=== PATIENT | female | born 1985 | race Caucasian/White ===

== ENCOUNTER 2020-12-04 03:30 | Inpatient (IN) ==
[2020-12-04] MEDS ORDERED: NALOXONE HCL 0.4 MG/1 ML VIAL/CARP ONE (03:31)
[2020-12-04] MEDS ORDERED: AMIODARONE 360MG / 200ML D5W IV ONE ×2 (03:44→04:11)
[2020-12-04] MEDS ORDERED: CALCIUM CHLORIDE 10% 10 ML SYR IV ONE ×2 (03:51→20:10)
[2020-12-04] MEDS ORDERED: DEXTROSE 50% 50 ML SYRINGE IV ONE (03:55)
[2020-12-04] MEDS ORDERED: SODIUM BICARBONATE 4.2% INJ 10 ML SYR IV ONE (04:03)
[2020-12-04] MEDS ORDERED: SODIUM BICARBONATE 8.4% INJ 50 MEQ/50 ML VIAL ONE (04:05)
[2020-12-04] MEDS ORDERED: NOREPINEPHRINE/D5W 8 MG/508 ML IV ONE (04:20)
[2020-12-04 04:43] LABS: iSTAT Arterial Blood Gas HCO3 26 meg/L (19-24); iSTAT Arterial Blood Gas pCO2 67 mmHg (35-46); iSTAT Arterial Blood Gas pH 7.19 (7.35-7.45); iSTAT Arterial Blood Gas pO2 225 mmHg (80-95); iSTAT Carbon Dioxide 28 mmol/L (24-31); iSTAT Hematocrit 30 % (37-47); iSTAT Hemoglobin 10.2 g/dl (12.0-16.0); iSTAT Sodium 140 mmol/L (135-144)
[2020-12-04 04:46] LABS: Hematocrit (blood only) 35.2 % (37-47); Hemoglobin 10.9 g/dL (12.0-16.0); Mean Corpuscular Hemoglobin 28.4 pg (25-34); Mean Corpuscular Volume 91.7 fL (80-100); Mean Platelet Volume 12.2 fL (7.4-10.4); Platelet Count 154 K/uL (130-400); RDW Coefficient of Variation 13.6 % (11.5-14.5); RDW Standard Deviation 45.3 fL (36.4-46.3); Red Blood Count 3.84 M/uL (4.2-5.4); White Blood Count 12.57 K/uL (4.8-10.8)
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
[2020-12-04] MEDS ORDERED: STAT IV Infusion **Titration per Protocol STA ×5 (04:51→08:53)
[2020-12-04] MEDS ORDERED: 0.2 MICRON FILTER SET 1 EA IV ONE (04:51)
[2020-12-04] MEDS ORDERED: AMIODARONE / D5W 150 MG/100 ML BAG IV STA (04:51)
[2020-12-04] MEDS ORDERED: ICU PROTOCOL FOR HYPERGLYCEMIA PRN (04:51)
[2020-12-04] MEDS ORDERED: AMIODARONE IV BOLUS & DRIP IV STA (04:51)
[2020-12-04] MEDS ORDERED: AMIODARONE / D5W 360 MG/200 ML BAG IV ONE (04:51)
[2020-12-04 04:53] LABS: Acetaminophen 7 ug/ml (10-30); Salicylate < 1.7 mg/dl (2.8-20)
[2020-12-04] MEDS ORDERED: POTASSIUM CHLORIDE / WTR 10 MEQ/100 ML PLCT IV STA (04:55)
--- NOTE | 2020-12-04 04:55 | Procedure Note ---
Procedure Note Date of Service December 04, 2020 Note FEMORAL CENTRAL LINE PROCEDURE NOTE: Procedure: Femoral Central Line Placement Attending: Dr. Bales Provider: GALA Dejesus Indication: Central Drug Administration, Poor Venous Access, Multiple Lab Draws Necessary Anesthesia: None Line placed emergently in the setting of cardiogenic shock requiring multiple vasopressors following a CODE BLUE. A time-out was completed verifying correct patient, procedure, site, positioning, and implants(s) or special equipment if applicable. Patients right groin was cleansed and draped in the typical sterile fashion using Chloraprep. The Femoral Vein and Femoral Artery were identified using ultrasound. The Femoral Vein was cannulated under direct ultrasound guidance using an introducer needle on a syringe. Good venous blood return was maintained prior to removal of syringe from introducer needle. Using Seldinger Technique, a guide wire was advanced through the introducer needle without resistance. The introducer needle was removed and ultrasound images were obtained of the guide wire within the Femoral Vein. A small incision was made in penetrating fashion at the guide wire insertion site utilizing an 11 blade scalpel. The dilator was advanced to the vessel without resistance. The dilator was exchanged for the triple lumen catheter which was advanced into the vessel without resistance. The guide wire was removed intact from the catheter without issue. Claves were placed on each catheter tip with confirmation of good blood flow from each lumen. Each port was easily flushed with sterile saline. The catheter was placed at the hub and sutured in place. BioPatch was applied to the catheter and a sterile Tegaderm dressing was applied over the catheter with careful attention to sterility. Patient tolerated procedure well. No immediate complications were met. Procedural Ultrasound Guidance: Procedure Date: 12/04/2020 Indication: Central venous catheter insertion Attending: Dr. Bales Provider: GALA Dejesus Artery AND Vein visualized: Yes Compressible Vein: Yes Guidewire or Short Catheter seen in vein prior to dilation: Yes Line confirmed in Vein with ultrasound: Yes Coding CPT Codes Tubes, Drains, and Vasc Access - Tubes, Drains, and Vasc Access: [id number] Place catheter in vein superior or inferior vena cava ([id number]) Tubes, Drains, and Vasc Access - Tubes, Drains, and Vasc Access: [id number] Ultrasound Guidance For Vascular ([id number]) [facility] [place] Procedure Codes (Charges) Tubes, Drains, and Vasc Access Procedure 1: Tubes, Drains, and Vasc Access: [id number] Place catheter in vein superior or inferior vena cava Procedure 2: Tubes, Drains, and Vasc Access: [id number] Ultrasound Guidance For Vascular
[2020-12-04 05:00] LABS: Pregnancy Test, Serum Negative (Negative)
[2020-12-04 05:10] LABS: Alanine Aminotransferase 193 U/L (12-78); Albumin Globulin Ratio 1.2 (0.9-2); Albumin Level 2.3 gm/dl (3.4-5.0); Alkaline Phosphatase 57 U/L (45-117); Aspartate Aminotransferase 215 U/L (15-37); BUN Creatinine Ratio 9.1 (10-20); Bilirubin Direct < 0.1 mg/dl (0-0.2); Bilirubin,Total 0.3 mg/dl (0.2-1); Blood Urea Nitrogen 12 mg/dl (7-18); Calcium 17.1 mg/dl (8.5-10.1); Carbon Dioxide 23 mmol/L (21-32); Chloride 106 mmol/L (98-107); Est GFR (Non-African American) 52.6 ml/min; Glucose 589 mg/dl (70-99); Lipase 181 U/L (73-393); Magnesium 4.5 mg/dl (1.8-2.4); Phosphorus 9.6 mg/dl (2.5-4.9); Potassium 2.9 mmol/L (3.5-5.1); Sodium 135 mmol/L (136-145); Total Protein 4.3 gm/dl (6.4-8.2); Troponin I 0.026 ng/ml (0-0.045)
[2020-12-04 05:14] LABS: Appearance Urine Cloudy (Clear); Bacteria Urine Automated 4+ (Negative); Bilirubin Urine Negative (Negative); Blood Urine 2+ (Negative); Color Urine Yellow; Epithelial Cell Urine Auto >30 /lpf (0-5); Glucose Urine UA 1+ (Negative); Ketones Urine Negative (Negative); Leukocyte Esterase Urine Negative (Negative); Nitrite Urine Negative (Negative); Protein Urine 2+ (Negative); Specific Gravity Urine 1.023 (1.000-1.030); Urobilinogen Urine Negative (Negative)
--- NOTE | 2020-12-04 05:23 | Emergency Department Note ---
Impression & Plan Cardiac arrest, Methamphetamine abuse, Ventricular fibrillation ED Provider Note Name: TANNER JOSHUA Age: 35 Sex: F Arrives Via: Walk-In Informant: Ex-Boyfriend, Mother ED Provider: Eleazar Crandall MD Chief Complaint: Overdose Impression: Cardiac Arrest Methamphetamine Abuse Ventricular Fibrillation Medical Decision Makin yr old female with history methamphetamine use and xanax use arrives via private vehicle by ex-boyfriend who found her unresponsive with needle next to her in bathroom at 3am this morning. He notes he gave CRP and breaths without improvement while trying to get her here. On arrival to ed unresponsive and taken to critical care bay by nursing where I met with them. Patient noted to be pulseless and not breathing and CODE BLUE Initiated at 330am. ACLS initiated and Intranasal Narcan given without response. Unable to get IV site initially this IO Placed by me left tibia and most meds given by this throughout main course of the code. No response to IV narcan either. Initial rhythm asystole. Intubated by me without difficulty. Multiple rounds epi, bicarb, calcium given as patient has been down significant amount of time by arrival. Repeat rhythm checks with vfib which was shocked many times throughout code as well as intermittent Torsades for which IV mag given as well. Patient with intermittent afib RVR, Vtach, Vfib, and torsades throughout course of code, though primarily vfib. Amiodarone started early in course, and with refractory fib Lidocaine given as well. Periodically would get pulsed rhythm for brief times with attempts at stabilizing made. Eventually got a stabilized NSR with hypotension. Bolus epi given while awaiting levo and epi gtts with good improvement in BP. Cooling protocol discussed and plan to initiate with CT head and move to ICU. ROSC EKG with unusual pattern that may be brugada, though would not be surprised if just reperfusion. Regardless, will be admitted to ICU for further evaluation. This could be reason for initial collapse in setting of meth use. No clear evidence of trauma to patient on examination and thus full CT c/a/p not indicated, though will get CT head en route to ICU. CCM and Medicine at bedside throughout this. Appreciate their input and help with this case, including right fem line placed by CCM and further discussion with significant other and mother of patient. There was some complications during CPR with pulmonary hemorrhage which required frequent suctioning but patient's O2 sats tolerated this fairly well. With clear evidence of using at time of overdose which was essentially witnessed, I suspect this is primary cause of her cardiac arrest. EKG without evidence that there is acute stemi, and with her BP stabilized on levo/epi, I am not sure there would be much utility to taking to slab tripper at this time. Furthermore, she did recently travel from [place], but I think PE unlikely, especially given it is relatively easy to oxygenate here, even while still doing ACLS. Triage/Nursing Notes reviewed by Me Additional history obtained from significant other (ex boyfriend), and mother (via phone) Differentials:Overdose, toxicologic, infection, hypoglycemia, electrolyte abnormalities, cardiac sources, intracerebral event, neurologic, trauma, as well as other pathologies. Vital Signs: reviewed and remarkable for cardiac arrest on arrival Interventions: Many, see code sheet and nursing notes Labs:Reviewed and remarkable for extensive abnormalities Imaging:X ray results are stated below per my interpretation: Chest: 1 view: Pulmonary edema with ET tube in place EKG:Per My Interpretation: Indication post cardiac arrest: NSR 82 bpm, qtc 415, unusual interventricular delay with questionable brugada morphology vs reperfusion recovery. No previous for comparison Cardiac/Tele Monitoring: Cardiac Monitoring: An Order was placed for continuous cardiac monitoring. The monitor shows a rate of 200 with a vfib rhythm. Consults:Dr Dwaine CORDERO Hospitalist, Charles CEDEÑO CCM Plan: Disposition:Hospitalization. Condition: Critical - Poor History of Present Illness:35 yr old female arrives for evaluation of being unresponsive. Patient with history meth and Xanax abuse who drove up to [place] with ex boyfriend (Amrit) this afternoon due to issues with significant other in [place] as well as her wish to get clean. Per Amrit patient seemed to be doing well and went in to take a shower this evening around 2:30am. He noted that it seemed very quite and thus checked on here and at 3am found her unresponsive on floor with needle and meth near her. Denies having heard any collapse/crash. Does not believe other drugs were involved. He states he noted she didn't seem to be breathing thus gave her breaths before driving here as fast as he could with her. Further information is unavailable. ROS: Unable to obtain due to cardiac arrest. Past Medical History:Unable to obtain due to cardiac arrest. Past Surgical History:Unable to obtain due to cardiac arrest. Family History:Unable to obtain due to cardiac arrest. Social History:Unable to obtain due to cardiac arrest. Home Medications:Unable to obtain due to cardiac arrest. Allergies:Unable to obtain due to cardiac arrest. Vitals:Blood Pressure: -/-, Pulse -, RR -, T -C, O2 -% on RA Physical Exam: GENERAL: Unresponsive, GCS 3. EYES: No scleral icterus, fixed mid pupils. ENT: Mucous membranes dry, no nasal congestion. NECK: Trachea is midline, no masses, no swelling. RESPIRATORY: Equal chest rise with ventilation, crackles bilaterally. CARDIOVASCULAR: No cardiac activity appreciated. GASTROINTESTINAL: Abdomen soft. Non-Distended. Bowel sounds not appreciated. No masses appreciated. EXTREMITIES: mottled, tract ried noted, no pulses appreciated. NEUROLOGIC: Unresponsive, GCS 3. SKIN: Mottled. No rash, no jaundice. ED Course: Times/Reassessments: Constant bedside management from 3:30am through 4:30am with brief discussions with Amrit (friend of patient in waiting room) and Ivania (mother via phone) Many repeat evaluations and discussions with [facility]/Hosp throughout and afterwards. Procedures: Endotracheal Intubation Indication: Cardiac arrest The patient was being bagged by respiratory with BVM. Suction, airway equipment, RSI drugs, respiratory equipment, and appropriate personnel were prepared prior to the initiation of the procedure. A time out was taken. Induction was performed with no mediation as patient GCS. After observing the clinical benefit of the medications, the airway was easily visualized utilizing a #3 GlideScope. A 7.5 size ETT tube was placed atraumatically to 24 cm using standard technique. The cuff inflated without signs of malfunction. There were bilateral breath sounds, positive colormetric change, no gastric sounds, a good capnography waveform, and post procedure pulse oximetry was 100% with good compressions. Post intubation sedation and paralysis was administered using no medication as completely unresponsive. There were no complications. CPR: I personally performed CPR on arrival of patient in standard fashion until able to turn over to next steam shovel engineer and at times throughout ACLS code. Cardiac Defibrillation: Non synchronized Cardiac defibrillation was performed for Vfib at least 6 times throughout code at 360 J by me in standard fashion. IO Placement: Left anterior tibial IO placed by me in sterile fashion. Landmarks identified, area cleaned and IO placed. Good marrow return and able to push fluids. Critical Care: I have personally spent 150 minutes of critical care time in the direct manag ement of this patient. Cardiopulmonary arrest with ROSC s/p methamphetamine overdose. This was a life/limb threatening event. This 150 minutes is in excess of all separately billable procedures. Eleazar Crandall MD Past Med/Surg History Social History Smoking Status: Unknown if ever smoked Communication Ability: Unable to Communication Ability Comment: Unable to obtain Current Living Situation Comment: Unable to obtain Results & Data (ED) Vital Signs Vital Signs - 24 hr 12/04/20 03:30 12/04/20 03:33 12/04/20 03:34 Pulse Rate 0 L 40 L Pulse Rate from SpO2 Sensor Respiratory Rate 93 H 38 H Blood Pressure Blood Pressure Mean 230 Pulse Oximetry Fraction of Inspired Oxygen Sepsis Recent Fever Within 48 Hours No Sepsis New/Unexplained Change in Mental Status N/A Sepsis Action Taken by Nursing No Action Required End-Tidal CO2 12/04/20 03:35 12/04/20 03:38 12/04/20 03:40 Pulse Rate 40 L 55 L 268 H Pulse Rate from SpO2 Sensor Respiratory Rate 25 H 38 H 30 H Blood Pressure 117/31 L Blood Pressure Mean 59 Pulse Oximetry Fraction of Inspired Oxygen Sepsis Recent Fever Within 48 Hours Sepsis New/Unexplained Change in Mental Status Sepsis Action Taken by Nursing End-Tidal CO2 12/04/20 03:41 12/04/20 03:45 12/04/20 03:50 Pulse Rate 159 H 134 H Pulse Rate from SpO2 Sensor 119 H 128 H Respiratory Rate 20 Blood Pressure 131/102 H 106/62 Blood Pressure Mean 111 76 Pulse Oximetry 94 94 Fraction of Inspired Oxygen Sepsis Recent Fever Within 48 Hours Sepsis New/Unexplained Change in Mental Status Sepsis Action Taken by Nursing End-Tidal CO2 12/04/20 03:55 12/04/20 04:00 12/04/20 04:05 Pulse Rate 126 H 189 H Pulse Rate from SpO2 Sensor 117 H 125 H Respiratory Rate 24 Blood Pressure 155/100 H Blood Pressure Mean 118 Pulse Oximetry 93 99 99 Fraction of Inspired Oxygen 60 Sepsis Recent Fever Within 48 Hours Sepsis New/Unexplained Change in Mental Status Sepsis Action Taken by Nursing End-Tidal CO2 36 12/04/20 04:06 12/04/20 04:10 12/04/20 04:12 Pulse Rate 96 H 145 H 103 H Pulse Rate from SpO2 Sensor 104 H 103 H Respiratory Rate Blood Pressure 218/161 H 125/84 Blood Pressure Mean 180 97 Pulse Oximetry 98 100 100 Fraction of Inspired Oxygen Sepsis Recent Fever Within 48 Hours Sepsis New/Unexplained Change in Mental Status Sepsis Action Taken by Nursing End-Tidal CO2 55 12/04/20 04:15 12/04/20 04:16 12/04/20 04:18 Pulse Rate 91 H 87 83 Pulse Rate from SpO2 Sensor 91 H 87 83 Respiratory Rate Blood Pressure 57/43 L 52/36 L Blood Pressure Mean 47 41 Pulse Oximetry 100 100 95 Fraction of Inspired Oxygen Sepsis Recent Fever Within 48 Hours Sepsis New/Unexplained Change in Mental Status Sepsis Action Taken by Nursing End-Tidal CO2 36 34 36 12/04/20 04:20 Pulse Rate 88 Pulse Rate from SpO2 Sensor 89 Respiratory Rate Blood Pressure 122/88 Blood Pressure Mean 99 Pulse Oximetry 100 Fraction of Inspired Oxygen Sepsis Recent Fever Within 48 Hours Sepsis New/Unexplained Change in Mental Status Sepsis Action Taken by Nursing End-Tidal CO2 40 Laboratory Data Result diagrams: 12/04/20 04:06 12/04/20 04:06 Lab Results 12/04/20 12/04/20 12/04/20 Range/Units 04:06 04:06 04:06 WBC 12.57 H (4.8-10.8) K/uL RBC 3.84 L (4.2-5.4) M/uL Hgb 10.9 L (12.0-16.0) g/dL POC Hgb (12.0-16.0) g/dl Hct 35.2 L (37-47) % POC Hct (37-47) % MCV 91.7 (80-100) fL MCH 28.4 (25-34) pg MCHC 31.0 L (32-36) g/dL RDW Std Deviation 45.3 (36.4-46.3) fL RDW Coeff of Antonia 13.6 (11.5-14.5) % Plt Count 154 (130-400) K/uL MPV 12.2 H (7.4-10.4) fL Neutrophils % (Manual) 26.1 % Lymphocytes % (Manual) 48.6 % Monocytes % (Manual) 0.9 % Eosinophils % (Manual) 0.9 % Metamyelocytes % (Man) 0.9 % Myelocytes % (Man) 1.7 % Neutrophils # (Manual) 3.28 (1.4-6.5) K/uL Total Absolute Neuts 3.28 (1.4-6.5) K/uL Lymphocytes # (Manual) 6.11 H (1.2-3.4) K/uL Total Abs Lymphocytes 8.74 H (1.2-3.4) K/uL Monocytes # (Manual) 0.11 (0.11-0.59) K/uL Eosinophils # (Manual) 0.11 (0-0.5) K/uL Metamyelocytes # (Man) 0.11 H (0-0) K/uL Myelocytes # (Manual) 0.21 H (0-0) K/uL Large Granular Lymphs 20.9 % # Lrg Granular Lymphs 2.63 K/uL Ovalocytes 1+ Echinocytes 1+ POC pH (7.35-7.45) POC pCO2 (35-46) mmHg POC pO2 (80-95) mmHg POC HCO3 (19-24) mayito/L POC Total CO2 (24-31) mmol/L POC Base Excess (-9-1.8) mayito/L POC ABG O2 Sat (90-95) % POC Sodium (135-144) mmol/L Sodium 135 L (136-145) mmol/L POC Potassium (3.3-5.0) mmol/L Potassium 2.9 L (3.5-5.1) mmol/L Chloride 106 (98-107) mmol/L Carbon Dioxide 23 (21-32) mmol/L Anion Gap 6.0 (3-11) BUN 12 (7-18) mg/dl Creatinine 1.31 H (0.6-1.2) mg/dl Est Cr Clr Drug Dosing Not Reportable Est GFR ( Amer) 61.0 ml/min Est GFR (Non-Af Amer) 52.6 ml/min BUN/Creatinine Ratio 9.1 L (10-20) Glucose 589 H* (70-99) mg/dl Calcium 17.1 H* (8.5-10.1) mg/dl Phosphorus 9.6 H (2.5-4.9) mg/dl Magnesium 4.5 H (1.8-2.4) mg/dl Total Bilirubin 0.3 (0.2-1) mg/dl Direct Bilirubin < 0.1 (0-0.2) mg/dl AST 215 H (15-37) U/L ALT 193 H (12-78) U/L Alkaline Phosphatase 57 (45-117) U/L Troponin I 0.026 (0-0.045) ng/ml Total Protein 4.3 L (6.4-8.2) gm/dl Albumin 2.3 L (3.4-5.0) gm/dl Globulin 2.0 L (2.5-4.0) gm/dl Albumin/Globulin Ratio 1.2 (0.9-2) Lipase 181 (73-393) U/L Beta-Hydroxybutyric Acd 2.47 (0.2-2.81) mg/dl HCG, Qual (Negative) Salicylates < 1.7 L (2.8-20) mg/dl Acetaminophen 7 L (10-30) ug/ml 12/04/20 12/04/20 Range/Units 04:06 04:07 WBC (4.8-10.8) K/uL RBC (4.2-5.4) M/uL Hgb (12.0-16.0) g/dL POC Hgb 10.2 L (12.0-16.0) g/dl Hct (37-47) % POC Hct 30 L (37-47) % MCV (80-100) fL MCH (25-34) pg MCHC (32-36) g/dL RDW Std Deviation (36.4-46.3) fL RDW Coeff of Antonia (11.5-14.5) % Plt Count (130-400) K/uL MPV (7.4-10.4) fL Neutrophils % (Manual) % Lymphocytes % (Manual) % Monocytes % (Manual) % Eosinophils % (Manual) % Metamyelocytes % (Man) % Myelocytes % (Man) % Neutrophils # (Manual) (1.4-6.5) K/uL Total Absolute Neuts (1.4-6.5) K/uL Lymphocytes # (Manual) (1.2-3.4) K/uL Total Abs Lymphocytes (1.2-3.4) K/uL Monocytes # (Manual) (0.11-0.59) K/uL Eosinophils # (Manual) (0-0.5) K/uL Metamyelocytes # (Man) (0-0) K/uL Myelocytes # (Manual) (0-0) K/uL Large Granular Lymphs % # Lrg Granular Lymphs K/uL Ovalocytes Echinocytes POC pH 7.19 L* (7.35-7.45) POC pCO2 67 H (35-46) mmHg POC pO2 225 H (80-95) mmHg POC HCO3 26 H (19-24) mayito/L POC Total CO2 28 (24-31) mmol/L POC Base Excess -3.0 (-9-1.8) mayito/L POC ABG O2 Sat 100.0 H (90-95) % POC Sodium 140 (135-144) mmol/L Sodium (136-145) mmol/L POC Potassium 3.0 L (3.3-5.0) mmol/L Potassium (3.5-5.1) mmol/L Chloride (98-107) mmol/L Carbon Dioxide (21-32) mmol/L Anion Gap (3-11) BUN (7-18) mg/dl Creatinine (0.6-1.2) mg/dl Est Cr Clr Drug Dosing Est GFR ( Amer) ml/min Est GFR (Non-Af Amer) ml/min BUN/Creatinine Ratio (10-20) Glucose (70-99) mg/dl Calcium (8.5-10.1) mg/dl Phosphorus (2.5-4.9) mg/dl Magnesium (1.8-2.4) mg/dl Total Bilirubin (0.2-1) mg/dl Direct Bilirubin (0-0.2) mg/dl AST (15-37) U/L ALT (12-78) U/L Alkaline Phosphatase (45-117) U/L Troponin I (0-0.045) ng/ml Total Protein (6.4-8.2) gm/dl Albumin (3.4-5.0) gm/dl Globulin (2.5-4.0) gm/dl Albumin/Globulin Ratio (0.9-2) Lipase (73-393) U/L Beta-Hydroxybutyric Acd (0.2-2.81) mg/dl HCG, Qual Negative (Negative) Salicylates (2.8-20) mg/dl Acetaminophen (10-30) ug/ml Administered Medications Amiodarone HCl/Dextrose (Nexterone / D5w) 360 mg in 200 mls @ 33.333 mls/hr IV ONE ONE Stop: 12/04/20 10:50 Last Infusion: 12/04/20 07:05 Dose: 33.3 mls/hr Documented by: [id number] Cosigned by: [id number] Infusion: 12/04/20 06:44 Dose: 33.3 mls/hr Documented by: [id number] Cosigned by: [id number] Admin: 12/04/20 05:14 Dose: 33.3 mls/hr Documented by: [id number] Cosigned by: [id number] Norepinephrine Bitartrate (Levophed/D5w) 8 mg in 508 mls @ 11.43 mls/hr IV .Q24H JASON; Protocol Stop: 01/03/21 04:59 Last Titration: 12/04/20 07:05 Dose: 0.2 mcg/kg/min, 45.7 mls/hr Documented by: [id number] Cosigned by: [id number] Admin: 12/04/20 06:44 Dose: 0.2 mcg/kg/min, 45.7 mls/hr Documented by: [id number] Cosigned by: [id number] Epinephrine HCl () 4 mg in 254 mls @ 4.572 mls/hr IV .Q24H JASON; Protocol Stop: 01/03/21 04:59 Last Titration: 12/04/20 07:05 Dose: 0.2 mcg/kg/min, 45.7 mls/hr Documented by: [id number] Cosigned by: [id number] Admin: 12/04/20 06:43 Dose: 0.2 mcg/kg/min, 45.7 mls/hr Documented by: [id number] Cosigned by: [id number] Sodium Chloride (Nss 1000ml) 1,000 mls @ 100 mls/hr IV .Q10H JASON Stop: 01/03/21 07:14 Last Admin: 12/04/20 07:32 Dose: 100 mls/hr Documented by: [id number] Ceftriaxone Sodium 2,000 mg/ (Dextrose) 70 mls @ 100 mls/hr IV Q24H JASON; Protocol Stop: 12/09/20 07:59 Last Admin: 12/04/20 07:31 Dose: 100 mls/hr Documented by: [id number] Discontinued Medications Amiodarone HCl/Dextrose (Amiodarone 360mg / 200ml D5w) Confirm Administered Dose 360 mg IV .STK-MED ONE Stop: 12/04/20 03:45 Last Admin: 12/04/20 06:38 Dose: Not Given Documented by: [id number] Amiodarone HCl/Dextrose (Amiodarone 360mg / 200ml D5w) Confirm Administered Dose 360 mg IV .STK-MED ONE Stop: 12/04/20 04:12 Last Admin: 12/04/20 06:38 Dose: Not Given Documented by: [id number] Amiodarone HCl (Amiodarone Iv Bolus & Drip) 1 ea IV NOW STA; Protocol Stop: 12/04/20 04:52 Last Admin: 12/04/20 06:39 Dose: Not Given Documented by: [id number] Calcium Chloride (Calcium Chloride 10% 10 Ml Syr) Confirm Administered Dose 2,000 mg IV .STK-MED ONE Stop: 12/04/20 03:52 Last Admin: 12/04/20 06:38 Dose: Not Given Documented by: [id number] Dextrose (Dextrose 50% 50 Ml Syringe) Confirm Administered Dose 50 ml IV .STK-ME D ONE Stop: 12/04/20 03:56 Last Admin: 12/04/20 06:38 Dose: Not Given Documented by: [id number] Epinephrine HCl (Epinephrine 1.5" Ndl 0.1 Mg/Ml Syr) Confirm Administered Dose 2 mg IV .STK-MED ONE Stop: 12/04/20 04:30 Last Admin: 12/04/20 04:34 Dose: 2 mg Documented by: [id number] Amiodarone HCl/Dextrose (Nexterone / D5w) 150 mg in 100 mls @ 600 mls/hr IV NOW STA Stop: 12/04/20 05:00 Last Infusion: 12/04/20 05:29 Dose: 0 mls/hr Documented by: [id number] Cosigned by: [id number] Admin: 12/04/20 05:14 Dose: 600 mls/hr Documented by: [id number] Cosigned by: [id number] Potassium Chloride (K Melo / Wtr) 10 meq in 100 mls @ 100 mls/hr IV Q1H STA Stop: 12/04/20 05:54 Last Admin: 12/04/20 07:15 Dose: 100 mls/hr Documented by: [id number] Midazolam HCl (Midazolam Hcl 1 Mg/Ml 2ml Vial) Confirm Administered Dose 2 mg .ROUTE .STK-MED ONE Stop: 12/04/20 06:16 Last Admin: 12/04/20 06:45 Dose: 2 mg Documented by: [id number] Midazolam HCl (Midazolam Hcl 1 Mg/Ml 2ml Vial) 2 mg IV NOW STA Stop: 12/04/20 06:41 Last Admin: 12/04/20 06:53 Dose: Not Given Documented by: [id number] Miscellaneous (Stat Iv Infusion Titration Per Protocol) 1 ea N/A NOW STA Stop: 12/04/20 04:52 Last Admin: 12/04/20 06:39 Dose: Not Given Documented by: [id number] Miscellaneous (Stat Iv Infusion Titration Per Protocol) 1 ea N/A NOW STA Stop: 12/04/20 04:52 Last Admin: 12/04/20 06:39 Dose: Not Given Documented by: [id number] Miscellaneous (Stat Iv Infusion Titration Per Protocol) 1 ea N/A NOW STA Stop: 12/04/20 04:55 Last Admin: 12/04/20 06:39 Dose: Not Given Documented by: [id number] Naloxone HCl (Naloxone Hcl 0.4 Mg/1 Ml Vial/Carp) Confirm Administered Dose 0.4 mg .ROUTE .STK-MED ONE Stop: 12/04/20 03:32 Last Admin: 12/04/20 06:38 Dose: Not Given Documented by: [id number] Norepinephrine Bitartrate (Norepinephrine/D5w 8 Mg/508 Ml) Confirm Administered Dose 8 mg IV .STK-MED ONE Stop: 12/04/20 04:21 Last Admin: 12/04/20 04:24 Dose: 8 mg Documented by: [id number] Sodium Bicarbonate (Sodium Bicarbonate 4.2% Inj 10 Ml Syr) Confirm Administered Dose 10 meq IV .STK-MED ONE Stop: 12/04/20 04:04 Last Admin: 12/04/20 06:38 Dose: Not Given Documented by: [id number] Sodium Bicarbonate (Sodium Bicarbonate 8.4% Inj 50 Meq/50 Ml Vial) Confirm Administered Dose 100 meq .ROUTE .STK-MED ONE Stop: 12/04/20 04:06 Last Admin: 12/04/20 06:38 Dose: Not Given Documented by: [id number] Imaging Data Radiologist's Impression: Chest X-Ray 12/04/20 04:20 XR chest 1V portable CLINICAL HISTORY: intubation COMPARISON STUDY: No previous studies for comparison. FINDINGS: Tip of endotracheal tube is 3.6 cm above the tyrone. Tip of nasogastric tube projects over the gastric cardia. There is no pneumothorax or pleural effusion. Note is made of bilateral airspace opacities and interstitial thickening, greater within the left lung. IMPRESSION: 1. Satisfactory positioning of the endotracheal tube. 2. Tip of nasogastric tube projects over the gastric cardia with side hole above the diaphragm. The tube could be advanced 4 cm. 3. Bilateral airspace opacities and interstitial thickening, greater within the left lung. The findings could reflect pneumonia or asymmetric pulmonary edema. ACT 112: Negative or not required by law. Electronically signed by: Cullen Ledesma M.D. 12/04/2020 7:[address] 12/04/20 04:[address] DOSE: 1498.35 mGy.cm HISTORY: s/p cardiac arrest TECHNIQUE: Multiaxial CT images of the head were performed without the use of intravenous contrast. Automated exposure control was utilized for this study. A dose lowering technique was utilized adhering to the principles of ALARA. Comparison: None. Findings: The paranasal sinuses and mastoid air cells are clear. The calvarium and skull base are intact. The ventricles and sulci are within normal limits. There is no mass, hematoma, midline shift, or acute infarct. Partially visualized left nasogastric tube. Impression: No acute intracranial abnormality. ACT 112: Negative or not required by law. Electronically signed by: Johnathan Clements M.D. 12/04/2020 7:43 AM Discharge Plan Visit Data Chief Complaint: Cardiac Arrest/CPR Stated Complaint: CODE BLUE/OVERDOSE ED Provider: Eleazar Crandall Discharge Problem: Cardiac arrest, Methamphetamine abuse, Ventricular fibrillation Patient Disposition: Admitted As Inpatient Discharge Instructions Interventions: ED Discharge Assessment Last Done: 12/04/20 05:44
[2020-12-04 05:32] LABS: ALC (manual) 8.74 K/uL (1.2-3.4); ANC (manual) 3.28 K/uL (1.4-6.5); Echinocytes 1+; Eosinophils # (manual) 0.11 K/uL (0-0.5); Eosinophils % (manual) 0.9 %; Large Granular Lymph # (manua 2.63 K/uL; Large Granular Lymph % (manual) 20.9 %; Lymphocytes # (manual) 6.11 K/uL (1.2-3.4); Lymphocytes % (manual) 48.6 %; Metamyelocytes # (manual) 0.11 K/uL (0-0); Metamyelocytes % (manual) 0.9 %; Monocytes # (manual) 0.11 K/uL (0.11-0.59); Monocytes % (manual) 0.9 %; Myelocytes # (manual) 0.21 K/uL (0-0); Myelocytes % (manual) 1.7 %; Neutrophils # (manual) 3.28 K/uL (1.4-6.5); Neutrophils % (manual) 26.1 %; Ovalocytes 1+
[2020-12-04 05:35] LABS: Amphetamines+Metham, Urine Pos (Neg); Barbiturates, Urine Neg (Neg); Benzodiazepine, Urine Pos (Neg); Cocaine, Urine Neg (Neg); MDMA (Ecstacy), Urine Pos (Neg); Methadone, Urine Neg (Neg); Opiate, Urine Neg (Neg); Phencyclidine, Urine Neg (Neg)
[2020-12-04 05:35] LABS: Beta-Hydroxybutyrate 2.47 mg/dl (0.2-2.81)
[2020-12-04 05:49] LABS: Mucus Urine Present (None Prsent)
[2020-12-04 05:53] LABS: Cast Urine Automated 0 /lpf (0-5); Renal Epithelial Cells Urine 20-30 /lpf (0-5)
[2020-12-04] MEDS ORDERED: MIDAZOLAM HCL 1 MG/ML 2ML VIAL ONE (06:15)
[2020-12-04] MEDS ORDERED: MIDAZOLAM HCL 1 MG/ML 2ML VIAL IV STA (06:40)
[2020-12-04] MEDS: EPINEPHrine/NSS 4 MG/254 ML BAG IV SCH ×2 (06:43→10:57)
[2020-12-04] MEDS: NOREPINEPHRINE/D5W 8 MG/508 ML BAG IV SCH ×3 (06:44→23:59)
--- NOTE | 2020-12-04 07:11 | Critical Care Consultation ---
Date of Consultation December 04, 2020 Assessment & Plan (1) Cardiogenic shock: Reason Critically Ill: 35-year-old female presents to the ICU following cardiac arrest from a drug overdose and undergoing therapeutic hypothermia. Currently in cardiogenic shock requiring multiple vasopressors. Neuro - Anoxic brain injurypatient was found down by friend for approximately 30 minutes before arriving to the ER and received an additional 1 hour of CPR during code for cardiac arrest -Patient unresponsive with severe evidence of anoxic injury based off neurological exam following ROSC -No acute intracranial findings on CT head -Patient undergo 24 hours of therapeutic hypothermia. Will obtain EEG and reassess neurological status once rewarmed -Therapeutic hypothermia protocol Cardiac - Cardiogenic shock/cardiac arrestpatient severely hypotensive requiring multiple vasopressors following prolonged cardiac arrest from drug overdose of approximately 1.5 hours -CVC is inserted, will need arterial line -Troponin within normal limits -EKG NSR with nonspecific intraventricular conduction delay. No prior study to compare. QTc 415 -Echo pending -Continue amiodarone drip -Maximize electrolyte -Titrate vasopressors for maps greater than 65 -Continuous monitor on telemetry Respiratory - Acute hypoxic respiratory failurepatient hypoxic following cardiac arrest with suspected pulmonary edema as patient was pulseless for extended period of time and received multiple rounds of CPR -Currently mechanically ventilated, will trend ABGs and wean vent as tolerated -We will hold on diuresis as patient is currently hypotensive on multiple vasopressors -Careful with fluid resuscitation at this time -Continuous monitoring on telemetry GI - N.p.o. OG tube to low wall suction RENAL/LYTES - AKIlikely ATN following cardiac arrest -Continue with IV fluid resuscitation -Maintain maps greater than 65 -Avoid nephrotoxins and renally adjust medication -Monitor frequent BMPs and replete electrolytes as indicated - Foleystrict I's and O's ENDO - No history diabetes or thyroid disease ICU hyperglycemic protocol HEME - Hemoglobin stable at this time, monitor routine CBCs ID - UTIUA turbid with +4 bacteria -Urine culture pending -Starting ceftriaxone x7 days LINES/IV ACCESS - right femoral intravascular cooling catheter DVT PROPHYLAXIS - SCDs I have personally spent 65 minutes of critical care time in the direct management of this patient. This is a life/limb threatening event. This includes time spent evaluating patient, direct bedside care, chart review, placing orders, interpretation of diagnostic studies, discussion with consultants, patient, and family members, as well as other required patient management activities. This time is exclusive of all separately billable procedures, and teaching time and separate from and in addition to any other critical care service time. Thank you for allowing us to participate in the care of this patient. Please refer to my attending physician's documentation for any further recommendations. (2) Anoxic brain injury: (3) Overdose: (4) Cardiac arrest: (5) Methamphetamine abuse: (6) Ventricular fibrillation: History of Present Illness Attending Physician: Carlos Isidro MD History of Present Illness Patient is a 35-year-old female without any known past medical history who was dropped off in the lobby of the ER following an overdose earlier this morning. Patient's friend reported that she had just arrived into town from [place] and was found down in the bathroom with a needle next to her arm at approximately 3 AM. Friend estimated downtime in approximately 30 minutes prior to arrival to the ER. Patient arrived to the ER unresponsive and CODE BLUE was activated. She was initially in PEA and underwent several rounds of CPR with epinephrine, bicarb, and calcium push. She converted to V. fib and underwent several additional rounds of CPR with defibrillation. She achieved ROSC on multiple occasions during the code but subsequently would convert back to V. fib. Patient eventually converted to NSR following defibrillation. During the code she was intubated, received 4 A bicarb, multiple pushes epinephrine, 2 g magnesium, 2 g calcium, and amiodarone bolus. Patient remained hypotensive and was started on epinephrine and norepinephrine drips. A right femoral triple- lumen CVC was placed emergently in the ER. Following ROSC, patient was unresponsive and had no response to painful stimuli, no cough gag or corneals. She did exhibit some agonal breathing. I did speak with the patient's mother regarding her poor prognosis. At this time the mother stated that she would like everything done. Patient is being transferred to the ICU to undergo 24- hour therapeutic hypothermia at this time. Allergies Allergy/AdvReac Type Severity Reaction Status Date / Time Penicillins Allergy Unknown Verified 12/04/20 14:21 Patient History Social History Smoking Status: Unknown if ever smoked Communication Ability: Unable to Communication Ability Comment: Unable to obtain Current Living Situation Comment: Unable to obtain Review of Systems Review of Systems: Unobtainable due to cognitive status and Unobtainable due to endotracheal tube Physical Exam Constitutional: + mechanically ventilated and + underweight Eyes: Pupils fixed nonreactive to light ENMT: external ear and nose normal, oropharynx normal Neck: trachea midline, no thyromegaly Respiratory: Coarse crackles auscultated bilaterally in all lung miller. Patient with pink frothy sputum. Mechanically ventilated. Symmetrical chest wall movement. No wheezes. Cardiovascular: Rate/Rhythm: regular rate and regular rhythm Heart Sounds: normal S1 and normal S2 Vessels: + JVD Extremities: no edema Gastrointestinal (Abdomen): normal bowel sounds, soft, nontender, no hepatosplenomegaly Musculoskeletal: no cyanosis or clubbing, extremities motor strength 5/5 Neurologic: Pupils fixed nonreactive to light. No cough gag or corneals on exam. Psychiatric: Patient comatose Results & Data Results & Data ([facility]) Vital Signs (Past 12 Hours) Vital Signs Temp Pulse Pulse Resp BP BP BP 12/04/20 06:26 34.4 C L 78 37 H 111/77 12/04/20 06:21 82 36 H 12/04/20 06:20 34.4 C L 78 37 H 111/77 12/04/20 05:38 12/04/20 05:25 77 101/72 12/04/20 05:24 76 96/82 L 12/04/20 05:20 78 110/81 12/04/20 05:15 76 140/95 12/04/20 05:10 74 157/100 H 12/04/20 05:05 77 159/105 H 12/04/20 05:03 76 163/111 H 12/04/20 05:01 75 16 173/107 H 12/04/20 05:00 75 173/107 H 12/04/20 04:50 70 151/97 H 12/04/20 04:49 70 150/99 H 12/04/20 04:45 70 145/91 H 12/04/20 04:40 70 122/83 12/04/20 04:37 12/04/20 04:35 71 98/66 L 12/04/20 04:33 71 87/59 L 12/04/20 04:30 73 12/04/20 04:26 78 64/43 L 12/04/20 04:25 80 12/04/20 04:20 88 122/88 12/04/20 04:18 83 52/36 L 12/04/20 04:16 87 57/43 L 12/04/20 04:15 91 H 12/04/20 04:12 103 H 125/84 12/04/20 04:10 145 H 12/04/20 04:06 96 H 218/161 H 12/04/20 04:05 189 H 12/04/20 04:00 126 H 24 155/100 H 12/04/20 03:55 12/04/20 03:50 12/04/20 03:45 134 H 106/62 12/04/20 03:41 159 H 20 131/102 H 12/04/20 03:40 268 H 30 H 12/04/20 03:38 55 L 38 H 12/04/20 03:35 40 L 25 H 117/31 L 12/04/20 03:34 40 L 38 H 12/04/20 03:33 0 L 93 H Pulse Ox 12/04/20 06:26 90 12/04/20 06:21 90 12/04/20 06:20 90 12/04/20 05:38 90 12/04/20 05:25 90 12/04/20 05:24 90 12/04/20 05:20 92 12/04/20 05:15 92 12/04/20 05:10 95 12/04/20 05:05 96 12/04/20 05:03 96 12/04/20 05:01 96 12/04/20 05:00 97 12/04/20 04:50 100 12/04/20 04:49 100 12/04/20 04:45 100 12/04/20 04:40 100 12/04/20 04:37 100 12/04/20 04:35 99 12/04/20 04:33 94 12/04/20 04:30 92 12/04/20 04:26 96 12/04/20 04:25 96 12/04/20 04:20 100 12/04/20 04:18 95 12/04/20 04:16 100 12/04/20 04:15 100 12/04/20 04:12 100 12/04/20 04:10 100 12/04/20 04:06 98 12/04/20 04:05 99 12/04/20 04:00 99 12/04/20 03:55 93 12/04/20 03:50 94 12/04/20 03:45 94 12/04/20 03:41 12/04/20 03:40 12/04/20 03:38 12/04/20 03:35 12/04/20 03:34 12/04/20 03:33 Coding Level of Care Code Critical Care 1st 30-74 mins Diagnoses Cardiogenic shock R57.0 Anoxic brain injury G93.1 Overdose T50.901A Cardiac arrest I46.9 Methamphetamine abuse F15.10 Ventricular fibrillation I49.01
--- NOTE | 2020-12-04 07:11 | Procedure Note ---
Procedure Note Date of Service December 04, 2020 Note FEMORAL CENTRAL LINE PROCEDURE NOTE: Procedure: Femoral intravascular cooling catheter [id number] exchange Attending: Dr. Bales Provider: GALA Dejesus Indication: Central Drug Administration, therapeutic hypothermia Anesthesia: None Line was placed emergently following CODE BLUE and cardiogenic shock with patient unresponsive after ROSC achieved. Patient now undergoing 24 hours therapeutic hypothermia. A time-out was completed verifying correct patient, procedure, site, positioning, and implants(s) or special equipment if applicable. Patients right groin was cleansed and draped in the typical sterile fashion using Chloraprep. A guidewire was placed into the distal port of the patient's existing central venous catheter and the catheter was exchanged for the wire. The wire was visualized in the right femoral vein using ultrasound. The dilator was advanced to the vessel without resistance. The dilator was exchanged for the endovascular cooling catheter which was advanced into the vessel without resistance. The guide wire was removed intact from the catheter without issue. Claves were placed on each catheter tip with confirmation of good blood flow from each lumen. Each port was easily flushed with sterile saline. The catheter was placed at the hub and sutured in place. BioPatch was applied to the catheter and a sterile Tegaderm dressing was applied over the catheter with careful attention to sterility. Patient tolerated procedure well. No immediate complications were met. Coding CPT Codes Tubes, Drains, and Vasc Access - Tubes, Drains, and Vasc Access: [id number] Place catheter in vein superior or inferior vena cava ([id number]) [facility] [place] Procedure Codes (Charges) Tubes, Drains, and Vasc Access Procedure 3: Tubes, Drains, and Vasc Access: [id number] Place catheter in vein superior or inferior vena cava
[2020-12-04] MEDS ORDERED: ACETAMINOPHEN 650 MG SUPP PR PRN (07:12)
[2020-12-04] MEDS ORDERED: MEPERIDINE HCL 25 MG/ML CARP/VIAL IV PRN (07:12)
[2020-12-04] MEDS ORDERED: SODIUM CHLORIDE 0.9% 1000ML 1,000 ML IV SCH (07:15)
--- NOTE | 2020-12-04 07:45 | CT Scan Report ---
HEAD CT NONCONTRAST CT DOSE: 1498.35 mGy.cm HISTORY: s/p cardiac arrest TECHNIQUE: Multiaxial CT images of the head were performed without the use of intravenous contrast. A utomated exposure control was utilized for this study. A dose lowering technique was utilized adheri ng to the principles of ALARA. Comparison: None. Findings: The paranasal sinuses and mastoid air cells are clear. The calvarium and skull base are int act. The ventricles and sulci are within normal limits. There is no mass, hematoma, midline shift, or acute infarct. Partially visualized left nasogastric tube. Impression: No acute intracranial abnormality. ACT 112: Negative or not required by law. Electronically signed by: Johnathan Clements M.D. 12/04/2020 7:43 AM
[2020-12-04] MEDS: fentaNYL DRIP 1,250 MCG/250 ML BAG IV SCH (07:57)
--- NOTE | 2020-12-04 07:59 | XRay Report ---
XR chest 1V portable CLINICAL HISTORY: intubation COMPARISON STUDY: No previous studies for comparison. FINDINGS: Tip of endotracheal tube is 3.6 cm above the tyrone. Tip of nasogastric tube projects over the gastric cardia. There is no pneumothorax or pleural effusion. Note is made of bilateral airspace opacities and interstitial thickening, greater within the left lung. IMPRESSION: 1. Satisfactory positioning of the endotracheal tube. 2. Tip of nasogastric tube projects over the gastric cardia with side hole above the diaphragm. The t ube could be advanced 4 cm. 3. Bilateral airspace opacities and interstitial thickening, greater within the left lung. The findin gs could reflect pneumonia or asymmetric pulmonary edema. ACT 112: Negative or not required by law. Electronically signed by: Cullen Ledesma M.D. 12/04/2020 7:58 AM
[2020-12-04] MEDS ORDERED: cefTRIAXone SODIUM 2,000 MG in DEXTROSE 5% 50 ML IV SCH (08:00)
[2020-12-04 08:24] LABS: iSTAT Arterial Blood Gas HCO3 28 meg/L (19-24); iSTAT Arterial Blood Gas pCO2 64 mmHg (35-46); iSTAT Arterial Blood Gas pH 7.24 (7.35-7.45); iSTAT Arterial Blood Gas pO2 89 mmHg (80-95); iSTAT Carbon Dioxide 30 mmol/L (24-31); iSTAT FiO2 65 %; iSTAT Site Art Line
[2020-12-04] MEDS: FAMOTIDINE 20 MG in SYRINGE 3 ML IV SCH ×2 (08:26→21:51)
[2020-12-04 08:30] LABS: INR 1.3 (0.9-1.1); Partial Thromboplastin Time 25.4 Seconds (21.0-31.0); Prothrombin Time 13.2 Seconds (9.0-12.0)
[2020-12-04] MEDS: POTASSIUM CHLORIDE / WTR 10 MEQ/100 ML PLCT IV SCH ×2 (08:30→09:35)
[2020-12-04 08:45] LABS: BUN Creatinine Ratio 13.4 (10-20); Calcium 12.1 mg/dl (8.5-10.1); Creatinine Clr Calc Pharmacy 46.2 ml/min; Magnesium 3.3 mg/dl (1.8-2.4); Potassium 3.1 mmol/L (3.5-5.1)
[2020-12-04] MEDS ORDERED: SEVERE STRESS LEVEL ONE (08:46)
[2020-12-04] MEDS ORDERED: INSULIN PROTOCOL GOAL RANGE ONE (08:46)
[2020-12-04] MEDS ORDERED: POTASSIUM CHLORIDE CRTAB 20 MEQ TABCR PO STA (08:52)
[2020-12-04] MEDS ORDERED: PIPERACILL/TAZOBAC CONSULT ACTIVE PRN (08:54)
--- NOTE | 2020-12-04 08:56 | Medical Student Progress Note ---
Date of Service December 04, 2020 Assessment & Plan (1) Cardiogenic shock: Admission and Anticipated Discharge Date Admission Date: December 04, 2020 Results & Data ([facility]) Vital Signs (Past 12 Hours) Vital Signs Temp Pulse Pulse Resp BP BP BP 12/04/20 07:37 82 27 H 12/04/20 06:26 34.4 C L 78 37 H 111/77 12/04/20 06:21 82 36 H 12/04/20 06:20 34.4 C L 78 37 H 111/77 12/04/20 05:38 12/04/20 05:25 77 101/72 12/04/20 05:24 76 96/82 L 12/04/20 05:20 78 110/81 12/04/20 05:15 76 140/95 12/04/20 05:10 74 157/100 H 12/04/20 05:05 77 159/105 H 12/04/20 05:03 76 163/111 H 12/04/20 05:01 75 16 173/107 H 12/04/20 05:00 75 173/107 H 12/04/20 04:50 70 151/97 H 12/04/20 04:49 70 150/99 H 12/04/20 04:45 70 145/91 H 12/04/20 04:40 70 122/83 12/04/20 04:37 12/04/20 04:35 71 98/66 L 12/04/20 04:33 71 87/59 L 12/04/20 04:30 73 12/04/20 04:26 78 64/43 L 12/04/20 04:25 80 12/04/20 04:20 88 122/88 12/04/20 04:18 83 52/36 L 12/04/20 04:16 87 57/43 L 12/04/20 04:15 91 H 12/04/20 04:12 103 H 125/84 12/04/20 04:10 145 H 12/04/20 04:06 96 H 218/161 H 12/04/20 04:05 189 H 12/04/20 04:00 126 H 24 155/100 H 12/04/20 03:55 12/04/20 03:50 12/04/20 03:45 134 H 106/62 12/04/20 03:41 159 H 20 131/102 H 12/04/20 03:40 268 H 30 H 12/04/20 03:38 55 L 38 H 12/04/20 03:35 40 L 25 H 117/31 L 12/04/20 03:34 40 L 38 H 12/04/20 03:33 0 L 93 H Pulse Ox 12/04/20 07:37 93 12/04/20 06:26 90 12/04/20 06:21 90 12/04/20 06:20 90 12/04/20 05:38 90 12/04/20 05:25 90 12/04/20 05:24 90 12/04/20 05:20 92 12/04/20 05:15 92 12/04/20 05:10 95 12/04/20 05:05 96 12/04/20 05:03 96 12/04/20 05:01 96 12/04/20 05:00 97 12/04/20 04:50 100 12/04/20 04:49 100 12/04/20 04:45 100 12/04/20 04:40 100 12/04/20 04:37 100 12/04/20 04:35 99 12/04/20 04:33 94 12/04/20 04:30 92 12/04/20 04:26 96 12/04/20 04:25 96 12/04/20 04:20 100 12/04/20 04:18 95 12/04/20 04:16 100 12/04/20 04:15 100 12/04/20 04:12 100 12/04/20 04:10 100 12/04/20 04:06 98 12/04/20 04:05 99 12/04/20 04:00 99 12/04/20 03:55 93 12/04/20 03:50 94 12/04/20 03:45 94 12/04/20 03:41 12/04/20 03:40 12/04/20 03:38 12/04/20 03:35 12/04/20 03:34 12/04/20 03:33
[2020-12-04] MEDS ORDERED: INSULIN REGULAR 250 UNITS in SODIUM CHLORIDE 0.9% 247.5 ML IV SCH (09:00)
[2020-12-04] MEDS ORDERED: POTASSIUM CHLORIDE / WTR 10 MEQ/100 ML PLCT IV SCH ×2 (09:00→10:30)
[2020-12-04 09:02] LABS: Creatine Kinase MB 42.9 ng/ml (0.5-3.6)
[2020-12-04] MEDS ORDERED: CARBOHYDRATES FOR HYPOGLYCEMIA PO PRN (09:15)
[2020-12-04] MEDS ORDERED: NovoLIN-R BOLUS FROM BAG IV ONE (09:15)
[2020-12-04] MEDS ORDERED: GLUCAGON FOR INJ 1 MG VIAL IM PRN (09:15)
[2020-12-04] MEDS ORDERED: GLUCOSE 40% GEL 15 GM TUBE PO PRN (09:15)
[2020-12-04] MEDS ORDERED: GLUCOSE 10 TABS/TUBE PO PRN (09:15)
[2020-12-04] MEDS: VASOPRESSIN 20 UNITS in 0.9 % SODIUM CHLORIDE 100 ML IV SCH ×2 (09:17→16:12)
[2020-12-04] MEDS: HYDROCORTISONE SOD 50 MG in SYRINGE 0 ML IV SCH ×3 (09:18→21:51)
--- NOTE | 2020-12-04 09:35 | Hospitalist Progress Note ---
Date of Service December 04, 2020 Assessment & Plan (1) Cardiac arrest: 35yo female presented to the EMS unresponsive and in cardiac arrest after being down in the setting of presumed methamphetamine overdose. Patient is in cardiogenic shock requiring multiple pressors and undergoing therapeutic hypothermia. Anoxic brain injury Found down by a friend after an estimated 30 minutes, subsequently received one hour of CPR for cardiac arrest before ROSC was achieved Unresponsive with signs of severe anoxic brain injury CT head negative for acute findings Per ICU, currently undergoing 24 hours of therapeutic hypothermia before rewarming, at which time EEG and repeat neurological exam will be performed Management per ICU Cardiogenic shock Management per ICU; currently on vasopressin, levophed, and epinephrine drips as well as amiodarone drip Echo (12/04) with EF 20-25%, wall motion abnormalities Continue telemetry monitoring, management per ICU Acute hypoxic respiratory failure secondary to cardiac arrest Mechanically ventilated at this time, management per ICU: trending ABGs, wean vent as tolerated Telemetry monitoring EDDI Likely ATN secondary to cardiac arrest, resultant lack of perfusion Management per ICU: careful IV fluid resuscitation, avoid nephrotoxins, frequent BMP, electrolyte repletion as needed UTI UA turbid, 4+ bacteria Culture pending Continue ceftriaxone IV per ICU Hypercalcemia Management per ICU FEN: NPO Code status: full code DVT ppx: heparin Consults: ICU, palliative care Dispo: ICU, prognosis poor Admission and Anticipated Discharge Date Admission Date: December 04, 2020 Supervising Physician Co-Signing Physician Notes I also saw the patient with the resident physician and confirmed martin portions of the history and physical examination. Agree with the impression and plan as noted in the resident documentation. ICU team providing care; family medicine following along for continuity of care showed the patient improvement transition out of the ICU, however at this time that appears unlikely. 35-year-old female admitted earlier this morning, dropped off in the waiting of the emergency department and found to be in cardiac arrest from a suspected drug overdose. Unknown downtime; extended resuscitation, initially PEA with subsequent return of spontaneous circulation. She was admitted to the ICU with hypothermia protocol. Upon exam, she remains sedated, ventilated, multiple pressor agents. The patient's mother lives in [place] and is on her way. Palliative care has been consulted. Cardiac arrest secondary to drug overdose Anoxic brain injury Therapeutic hypothermic protocol Cardiogenic shock on multiple pressor agents Care was provided by ICU team. Telemedicine continues to follow at a distance at this point in time Subjective Patient seen and evaluated at bedside this morning. Patient remains comatose. Discussed with ICU attending who reports patient is breathing over the vent. Family was updated overnight by ICU EHR TRAINER. ROS unobtainable. Review of Systems Review of Systems: See HPI Physical Exam Physical Exam: Constitutional: laying in bed, intubated and mechanically ventilated CV: heart sounds distant Resp: crackles heard throughout, mechanically ventilated with symmetric chest rise Neuro: comatose, unresponsive to sternal rub, pupils equal, fixed, unresponsive to light, occasional brief myoclonus of all extremities and eyelids Results & Data Results & Data ([facility]) Vital Signs (Past 12 Hours) Vital Signs Temp Pulse Pulse Resp BP BP BP 12/04/20 07:37 82 27 H 12/04/20 06:26 34.4 C L 78 37 H 111/77 12/04/20 06:21 82 36 H 12/04/20 06:20 34.4 C L 78 37 H 111/77 12/04/20 05:38 12/04/20 05:25 77 101/72 12/04/20 05:24 76 96/82 L 12/04/20 05:20 78 110/81 12/04/20 05:15 76 140/95 12/04/20 05:10 74 157/100 H 12/04/20 05:05 77 159/105 H 12/04/20 05:03 76 163/111 H 12/04/20 05:01 75 16 173/107 H 12/04/20 05:00 75 173/107 H 12/04/20 04:50 70 151/97 H 12/04/20 04:49 70 150/99 H 12/04/20 04:45 70 145/91 H 12/04/20 04:40 70 122/83 12/04/20 04:37 12/04/20 04:35 71 98/66 L 12/04/20 04:33 71 87/59 L 12/04/20 04:30 73 12/04/20 04:26 78 64/43 L 12/04/20 04:25 80 12/04/20 04:20 88 122/88 12/04/20 04:18 83 52/36 L 12/04/20 04:16 87 57/43 L 12/04/20 04:15 91 H 12/04/20 04:12 103 H 125/84 12/04/20 04:10 145 H 12/04/20 04:06 96 H 218/161 H 12/04/20 04:05 189 H 12/04/20 04:00 126 H 24 155/100 H 12/04/20 03:55 12/04/20 03:50 12/04/20 03:45 134 H 106/62 12/04/20 03:41 159 H 20 131/102 H 12/04/20 03:40 268 H 30 H 12/04/20 03:38 55 L 38 H 12/04/20 03:35 40 L 25 H 117/31 L 12/04/20 03:34 40 L 38 H 12/04/20 03:33 0 L 93 H Pulse Ox 12/04/20 07:37 93 12/04/20 06:26 90 12/04/20 06:21 90 12/04/20 06:20 90 12/04/20 05:38 90 12/04/20 05:25 90 12/04/20 05:24 90 12/04/20 05:20 92 12/04/20 05:15 92 12/04/20 05:10 95 12/04/20 05:05 96 12/04/20 05:03 96 12/04/20 05:01 96 12/04/20 05:00 97 12/04/20 04:50 100 12/04/20 04:49 100 12/04/20 04:45 100 12/04/20 04:40 100 12/04/20 04:37 100 12/04/20 04:35 99 12/04/20 04:33 94 12/04/20 04:30 92 12/04/20 04:26 96 12/04/20 04:25 96 12/04/20 04:20 100 12/04/20 04:18 95 12/04/20 04:16 100 12/04/20 04:15 100 12/04/20 04:12 100 12/04/20 04:10 100 12/04/20 04:06 98 12/04/20 04:05 99 12/04/20 04:00 99 12/04/20 03:55 93 12/04/20 03:50 94 12/04/20 03:45 94 12/04/20 03:41 12/04/20 03:40 12/04/20 03:38 12/04/20 03:35 12/04/20 03:34 12/04/20 03:33 Resident Activity Tracking Resident Involvement: Resident Care Provided Care Provided: Adult Hospital Medicine
--- NOTE | 2020-12-04 09:40 | Electrocardiogram Report ---
Test Reason : Blood Pressure : / mmHG Vent. Rate : 082 BPM Atrial Rate : 082 BPM P-R Int : 180 ms QRS Dur : 124 ms QT Int : 356 ms P-R-T Axes : 051 087 075 degrees QTc Int : 415 ms Normal sinus rhythm Atypical right bundle branch block, consider Brugada pattern Abnormal ECG No previous ECGs available Confirmed by Efrain Cabrales ([id number]) on 12/04/2020 9:40:26 AM Referred By: REFERRED SELF Confirmed By:Earl Cabrales
[2020-12-04] MEDS ORDERED: PIPERACILLIN/TAZOBACTAM 3.375 GM in DEXTROSE 5% 100 ML IV ONE (10:00)
[2020-12-04] MEDS ORDERED: ARTIFICIAL TEARS OP OINT 3.5 GM TUBE OP PRN (11:10)
[2020-12-04] MEDS: HEPARIN SOD 5,000 UNIT/0.5 ML VIAL SQ SCH ×2 (11:25→23:54)
[2020-12-04] MEDS: AMIODARONE / D5W 360 MG/200 ML BAG IV SCH ×2 (11:25→23:57)
[2020-12-04] MEDS ORDERED: INSULIN ASPART 100 UNITS/ML 3 ML PEN SC SCH (11:30)
[2020-12-04 12:13] LABS: INR 1.4 (0.9-1.1); Partial Thromboplastin Ratio 0.9; Partial Thromboplastin Time 24.5 Seconds (21.0-31.0); Prothrombin Time 13.6 Seconds (9.0-12.0)
[2020-12-04 12:25] LABS: Calcium 11.4 mg/dl (8.5-10.1); Creatinine Clr Calc Pharmacy 45.9 ml/min; Est GFR (African American) 50.5 ml/min; Est GFR (Non-African American) 43.6 ml/min; Magnesium 2.7 mg/dl (1.8-2.4)
--- NOTE | 2020-12-04 12:54 | XCELERA ---
[id number] \\[id number]
--- NOTE | 2020-12-04 13:07 | Procedure Note ---
Procedure Note Date of Service December 04, 2020 Note A time out was performed. My hands were washed immediately prior to the procedure. I wore a surgical cap, mask with protective eyewear, sterile gown and sterile gloves throughout the procedure. The left inguinal region was prepped using chlorhexidine scrub and draped in sterile fashion using a three quarter sheet drape and sterile towels. The femoral pulse was identified using ultrasound guidance. Anesthesia was achieved using 1% lidocaine. With the aid of ultrasound guidance the femoral artery was identified, the introducer needle was inserted into the femoral artery. Arterial blood was withdrawn. The syringe was removed and a guidewire was advanced through the needle into the femoral artery. The needle was exchanged over the wire for an arterial catheter. The wire was removed and the catheter was secured to the skin using a suture. The patient tolerated the procedure without any hemodynamic compromise. At time of procedure completion, the catheter was connected to the cardiac cath lab technologist and calibrated. Appropriate waveform and blood pressure tracing was observed. Estimated blood loss is 10 ml. Coding CPT Codes Tubes, Drains, and Vasc Access - Tubes, Drains, and Vasc Access: [id number] Ultrasound Guidance For Vascular ([id number]) Tubes, Drains, and Vasc Access - Tubes, Drains, and Vasc Access: [id number] Place Catheter In Artery ([id number]) [facility] [place] Procedure Codes (Charges) Tubes, Drains, and Vasc Access Procedure 4: Tubes, Drains, and Vasc Access: [id number] Ultrasound Guidance For Vascular Procedure 5: Tubes, Drains, and Vasc Access: [id number] Place Catheter In Artery
[2020-12-04 13:10] LABS: Beta-Hydroxybutyrate 0.97 mg/dl (0.2-2.81)
[2020-12-04 13:55] LABS: Potassium 2.6 mmol/L (3.5-5.1)
[2020-12-04] MEDS: NORMOSOL-R 1,000 ML IV SCH (14:20)
[2020-12-04] MEDS: PATIENT'S ALLERGY INFO NEEDS ENTERED SCH ×6 (14:22→16:50)
[2020-12-04] MEDS ORDERED: POTASSIUM CHLORIDE 20 MEQ/15 ML UDC NG STA (14:41)
[2020-12-04] MEDS: PIPERACILLIN/TAZOBACTAM 3.375 GM in DEXTROSE 5% 100 ML IV SCH ×2 (15:12→21:52)
[2020-12-04] MEDS: POTASSIUM CHLORIDE / WTR 20 MEQ/100 ML PLCT IV SCH ×4 (15:13→23:56)
[2020-12-04 15:28] LABS: BUN Creatinine Ratio 19.1 (10-20); Calcium 10.9 mg/dl (8.5-10.1); Creatinine Clr Calc Pharmacy 49.8 ml/min; Est GFR (African American) 55.8 ml/min; Est GFR (Non-African American) 48.1 ml/min; Magnesium 2.5 mg/dl (1.8-2.4); Phosphorus 2.9 mg/dl (2.5-4.9); Potassium 2.5 mmol/L (3.5-5.1)
[2020-12-04] MEDS: INSULIN ASPART 100 UNITS/ML 3 ML PEN SC SCH ×2 (16:11→20:52)
--- NOTE | 2020-12-04 16:23 | Palliative Care Consultation ---
Date of Consultation December 04, 2020 Assessment & Plan (1) Palliative care encounter: I met with Nyasia's mother at bedside. She is fully aware of the gravity of Nyasia's condition. She tells me that Nyasia is her only child and that her before Nyasia was born. They have been very close and she has seen Nyasia struggle with her illness. She unfortunately does not have any support in this area but has been on the phone with family members in [place]. We discussed the role of palliative care to provide support and to help navigate with difficult decision making. At this time she remains hypothermic. 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 Palliative care will follow. (2) Anoxic brain injury: (3) Cardiac arrest: (4) Overdose: History of Present Illness Reason for Consultation: goals of care Requesting Physician: Dr. Bales Attending Physician: Rajendra Moreland DO History of Present Illness 35 yo lady with history of substance abuse who recently moved to [facility] with the hope of recovery. She had been staying with a friend and told him that she was going to take a shower. He checked on her after 30 minutes and found her unresponsive for unknown period of time. He brought her to emergency room and resuscitation efforts continued for more than an hour. She did have a pulse and is now in hypothermia protocol in ICU. She has been breathing above ventilator at times and has myoclonus but is not responsive at this time. Her mother is at bedside, having arrived from [place]. Allergies Allergy/AdvReac Type Severity Reaction Status Date / Time Penicillins Allergy Unknown Verified 12/04/20 14:21 Patient History Social History Smoking Status: Unknown if ever smoked Communication Ability: Unable to Communication Ability Comment: Unable to obtain Current Living Situation Comment: Unable to obtain Review of Systems Review of Systems: Unobtainable due to reduced consciousness Physical Exam Constitutional: no acute distress ENMT: ET tube Respiratory: mechanical ventilation Neurologic: + obtunded Results & Data ([facility]) Vital Signs (Past 12 Hours) Vital Signs Temp Temp Temp Pulse Pulse Resp BP 12/04/20 15:20 91.8 F L 70 136/109 H 12/04/20 14:00 76 12/04/20 13:51 91.6 F L 76 131/103 H 12/04/20 13:00 91.4 F L 91.4 F L 72 35 H 12/04/20 12:37 91.4 F L 67 125/97 12/04/20 12:00 91.6 F L 91.6 F L 70 34 H 12/04/20 11:37 91.2 F L 63 115/95 12/04/20 11:18 65 32 H 12/04/20 11:00 91.6 F L 91.6 F L 67 25 H 12/04/20 10:19 91.6 F L 67 124/89 12/04/20 10:00 91.6 F L 91.6 F L 69 24 12/04/20 09:22 91.4 F L 72 106/81 12/04/20 09:00 91.6 F L 91.6 F L 67 21 12/04/20 08:31 90.5 F L 74 105/80 12/04/20 08:00 91.4 F L 91.4 F L 74 22 12/04/20 07:37 82 27 H 12/04/20 07:09 87 99/83 L 12/04/20 07:00 94.3 F L 94.3 F L 66 22 12/04/20 06:26 93.9 F L 78 37 H 12/04/20 06:21 82 36 H 12/04/20 06:20 93.9 F L 78 37 H 12/04/20 05:38 12/04/20 05:25 77 101/72 12/04/20 05:24 76 96/82 L 12/04/20 05:20 78 110/81 12/04/20 05:15 76 140/95 12/04/20 05:10 74 157/100 H 12/04/20 05:05 77 159/105 H 12/04/20 05:03 76 163/111 H 12/04/20 05:01 75 16 12/04/20 05:00 75 173/107 H 12/04/20 04:50 70 151/97 H 12/04/20 04:49 70 150/99 H 12/04/20 04:45 70 145/91 H 12/04/20 04:40 70 122/83 12/04/20 04:37 12/04/20 04:35 71 98/66 L 12/04/20 04:33 71 87/59 L 12/04/20 04:30 73 12/04/20 04:26 78 64/43 L 12/04/20 04:25 80 12/04/20 04:20 88 122/88 12/04/20 04:18 83 52/36 L 12/04/20 04:16 87 57/43 L 12/04/20 04:15 91 H 12/04/20 04:12 103 H 125/84 12/04/20 04:10 145 H BP BP Pulse Ox 12/04/20 15:20 98 12/04/20 14:00 12/04/20 13:51 100 12/04/20 13:00 131/103 H 100 12/04/20 12:37 100 12/04/20 12:00 125/97 99 12/04/20 11:37 100 12/04/20 11:18 99 12/04/20 11:00 115/95 100 12/04/20 10:19 100 12/04/20 10:00 124/89 100 12/04/20 09:22 99 12/04/20 09:00 106/81 99 12/04/20 08:31 99 12/04/20 08:00 105/80 95 12/04/20 07:37 93 12/04/20 07:09 95 12/04/20 07:00 105/76 93 12/04/20 06:26 111/77 90 12/04/20 06:21 90 12/04/20 06:20 111/77 90 12/04/20 05:38 90 12/04/20 05:25 90 12/04/20 05:24 90 12/04/20 05:20 92 12/04/20 05:15 92 12/04/20 05:10 95 12/04/20 05:05 96 12/04/20 05:03 96 12/04/20 05:01 173/107 H 96 12/04/20 05:00 97 12/04/20 04:50 100 12/04/20 04:49 100 12/04/20 04:45 100 12/04/20 04:40 100 12/04/20 04:37 100 12/04/20 04:35 99 12/04/20 04:33 94 12/04/20 04:30 92 12/04/20 04:26 96 12/04/20 04:25 96 12/04/20 04:20 100 12/04/20 04:18 95 12/04/20 04:16 100 12/04/20 04:15 100 12/04/20 04:12 100 12/04/20 04:10 100 PG Care Time/CCT Total # of Minutes Spent Total Time Spent with Patient: Total time spent is greater than 50% in coordination of care (as documented) at patient's floor/unit and/or counseling patient: Total time spent 60 minutes with more than 50% of time spent on family support and education, coordination of care. Coding Level of Care Code 71042 Initial Inpt Care Lvl 2 Diagnoses Palliative care encounter Z51.5 Anoxic brain injury G93.1 Cardiac arrest I46.9 Overdose T50.901A
--- NOTE | 2020-12-04 17:54 | Electrocardiogram Report ---
Test Reason : Blood Pressure : / mmHG Vent. Rate : 069 BPM Atrial Rate : 069 BPM P-R Int : 212 ms QRS Dur : 104 ms QT Int : 402 ms P-R-T Axes : 059 083 024 degrees QTc Int : 430 ms Sinus rhythm with 1st degree A-V block Nonspecific T wave abnormality Abnormal ECG When compared with ECG of 04-DEC-2020 04:16, ND interval has increased ST no longer depressed in Lateral leads Confirmed by Efrain Cabrales ([id number]) on 12/04/2020 5:54:16 PM Referred By: REFERRED SELF Confirmed By:Earl Cabrales
[2020-12-04 19:05] LABS: Phosphorus 3.4 mg/dl (2.5-4.9)
[2020-12-04 19:43] LABS: iSTAT Art Bld Gas pCO2 Correct 36 mmHg (35-46); iSTAT Art Bld Gas pH Corrected 7.319 (7.35-7.45); iSTAT Arterial Blood Gas HCO3 20 meg/L (19-24); iSTAT Arterial Blood Gas pCO2 43 mmHg (35-46); iSTAT Arterial Blood Gas pH 7.26 (7.35-7.45); iSTAT Arterial Blood Gas pO2 111 mmHg (80-95); iSTAT Arterial Blood Gas pO2 C 89; iSTAT Carbon Dioxide 21 mmol/L (24-31); iSTAT FiO2 40 %; iSTAT Hematocrit 39 % (37-47); iSTAT Hemoglobin 13.3 g/dl (12.0-16.0); iSTAT Potassium 3.2 mmol/L (3.3-5.0); iSTAT Site Art Line; iSTAT Sodium 142 mmol/L (135-144)
[2020-12-04 20:10] LABS: BUN Creatinine Ratio 19.3 (10-20); Calcium 10.2 mg/dl (8.5-10.1); Creatinine Clr Calc Pharmacy 49.4 ml/min; Est GFR (African American) 55.3 ml/min; Est GFR (Non-African American) 47.7 ml/min; Magnesium 2.3 mg/dl (1.8-2.4); Phosphorus 2.7 mg/dl (2.5-4.9); Potassium 3.4 mmol/L (3.5-5.1)
[2020-12-04] MEDS ORDERED: SODIUM CHLORIDE 0.9% 10ML FLUSH IV ONE (20:10)
[2020-12-04] MEDS ORDERED: LIDOCAINE 2% 20 MG/ML 5 ML SYR IV ONE (20:10)
--- NOTE | 2020-12-04 20:16 | Billing Data ---
Date of Service December 04, 2020 Coding Level of Care Code Critical Care 1st - mins
[2020-12-04 23:38] LABS: BUN Creatinine Ratio 21.6 (10-20); Calcium 9.5 mg/dl (8.5-10.1); Creatinine Clr Calc Pharmacy 50.5 ml/min; Est GFR (African American) 56.8 ml/min; Magnesium 2.2 mg/dl (1.8-2.4)
[2020-12-05] MEDS: INSULIN ASPART 100 UNITS/ML 3 ML PEN SC SCH ×7 (00:08→23:56)
[2020-12-05] MEDS: VASOPRESSIN 20 UNITS in 0.9 % SODIUM CHLORIDE 100 ML IV SCH ×3 (02:40→19:03)
[2020-12-05] MEDS: HYDROCORTISONE SOD 50 MG in SYRINGE 0 ML IV SCH ×2 (03:05→08:16)
[2020-12-05 03:56] LABS: INR 1.3 (0.9-1.1); Partial Thromboplastin Ratio 1.1; Partial Thromboplastin Time 30.2 Seconds (21.0-31.0); Prothrombin Time 12.8 Seconds (9.0-12.0)
[2020-12-05 04:00] LABS: Hematocrit (blood only) 38.9 % (37-47); Hemoglobin 13.1 g/dL (12.0-16.0); Mean Corpuscular Hemoglobin 28.6 pg (25-34); Mean Corpuscular Hgb Conc 33.7 g/dL (32-36); Mean Corpuscular Volume 84.9 fL (80-100); Platelet Count 225 K/uL (130-400); RDW Coefficient of Variation 13.5 % (11.5-14.5); RDW Standard Deviation 41.3 fL (36.4-46.3); Red Blood Count 4.58 M/uL (4.2-5.4)
[2020-12-05 04:01] LABS: BUN Creatinine Ratio 25.1 (10-20); Basophils # (auto) 0.01 K/uL (0-0.2); Calcium 8.9 mg/dl (8.5-10.1); Creatinine Clr Calc Pharmacy 49.8 ml/min; Echinocytes 1+; Est GFR (African American) 55.8 ml/min; Est GFR (Non-African American) 48.1 ml/min; Immature Granulocytes # (auto) 0.09 K/uL (0.00-0.02); Immature Granulocytes % (auto) 0.4 %; Lymphocytes # (auto) 1.52 K/uL (1.2-3.4); Lymphocytes % (auto) 6.9 %; Magnesium 2.1 mg/dl (1.8-2.4); Monocytes # (auto) 1.41 K/uL (0.11-0.59); Monocytes % (auto) 6.4 %; Neutrophils # (auto) 18.97 K/uL (1.4-6.5); Neutrophils % (auto) 86.3 %; Phosphorus 5.3 mg/dl (2.5-4.9); Potassium 4.8 mmol/L (3.5-5.1)
[2020-12-05 04:04] LABS: iSTAT Art Bld Gas pCO2 Correct 31 mmHg (35-46); iSTAT Art Bld Gas pH Corrected 7.306 (7.35-7.45); iSTAT Arterial Blood Gas HCO3 16 meg/L (19-24); iSTAT Arterial Blood Gas pCO2 36 mmHg (35-46); iSTAT Arterial Blood Gas pH 7.25 (7.35-7.45); iSTAT Arterial Blood Gas pO2 115 mmHg (80-95); iSTAT Arterial Blood Gas pO2 C 93; iSTAT Carbon Dioxide 17 mmol/L (24-31); iSTAT FiO2 30 %; iSTAT Hematocrit 38 % (37-47); iSTAT Hemoglobin 12.9 g/dl (12.0-16.0); iSTAT Potassium 4.6 mmol/L (3.3-5.0); iSTAT Site Art Line; iSTAT Sodium 140 mmol/L (135-144)
[2020-12-05] MEDS ORDERED: STAT IV Infusion **Titration per Protocol STA (04:42)
[2020-12-05] MEDS: propofoL 1,000 MG/100 ML VIAL IV SCH ×3 (04:53→23:51)
[2020-12-05] MEDS: PROPOFOL BOLUS FROM BAG IV PRN ×3 (04:54→22:02)
[2020-12-05] MEDS: NOREPINEPHRINE/D5W 8 MG/508 ML BAG IV SCH ×2 (05:40→19:03)
[2020-12-05] MEDS: PIPERACILLIN/TAZOBACTAM 3.375 GM in DEXTROSE 5% 100 ML IV SCH ×3 (06:31→21:24)
[2020-12-05] MEDS: NORMOSOL-R 1,000 ML IV SCH (06:49)
[2020-12-05] MEDS: FAMOTIDINE 20 MG in SYRINGE 3 ML IV SCH ×2 (08:18→21:25)
[2020-12-05 08:30] LABS: BUN Creatinine Ratio 24.1 (10-20); Calcium 9.1 mg/dl (8.5-10.1); Creatinine Clr Calc Pharmacy 47.1 ml/min; Est GFR (African American) 51.8 ml/min; Est GFR (Non-African American) 44.7 ml/min
--- NOTE | 2020-12-05 08:38 | XRay Report ---
SINGLE VIEW CHEST CLINICAL HISTORY: Follow-up airspace consolidation. FINDINGS: 2 AP, portable, upright chest radiographs are compared to study dated 12/04/2020. Endotrache al and enteric tubes are unchanged in position. The cardiomediastinal silhouette is unremarkable. [place] ateral airspace opacities have almost completely cleared as compared to yesterday. Mild residual cons olidation is suggested at the left lung base. Trace pleural effusions are suspected. No pneumothorax is seen. The bony thorax is grossly intact. IMPRESSION: 1. Stable lines and tube. 2. Bilateral airspace opacities have almost completely resolved as compared to yesterday. Given the t virgie course this likely represented pulmonary edema. 3. There is residual airspace consolidation at the left lung base. 4. Suspect trace pleural effusions. ACT 112: Negative or not required by law. Electronically signed by: Gideon Tidwell M.D. 12/05/2020 8:37 AM
[2020-12-05 08:42] LABS: iSTAT Arterial Blood Gas HCO3 19 meg/L (19-24); iSTAT Arterial Blood Gas pCO2 36 mmHg (35-46); iSTAT Arterial Blood Gas pH 7.34 (7.35-7.45); iSTAT Arterial Blood Gas pO2 > 420 mmHg (80-95); iSTAT Carbon Dioxide 20 mmol/L (24-31); iSTAT FiO2 100 %; iSTAT Site Art Line
[2020-12-05] MEDS ORDERED: DEXTROSE 50% 50 ML SYRINGE IV ONE (10:00)
[2020-12-05] MEDS ORDERED: INSULIN HUMAN REGULAR PER UNIT 10 UNITS in SYRINGE 9.9 ML IV ONE (10:01)
[2020-12-05] MEDS ORDERED: FUROSEMIDE 40 MG/4 ML VIAL IV STA (10:03)
[2020-12-05] MEDS: HEPARIN SOD 5,000 UNIT/0.5 ML VIAL SQ SCH ×2 (10:42→23:32)
--- NOTE | 2020-12-05 10:52 | Critical Care Progress Note ---
Date of Service December 05, 2020 Assessment & Plan (1) Cardiogenic shock: Reason Critically Ill: 35-year-old female presents to the ICU following cardiac arrest from a drug overdose and undergoing therapeutic hypothermia. Currently in cardiogenic shock requiring multiple vasopressors. Neuro - Anoxic brain injurypatient with likely significant anoxic brain injury. Palliative care following. Propofol using help with suppression of myoclonic jerks. EEG pending. She is currently in the warming phase. UDS was positive for amphetamines, ecstasy and benzodiazepines. Cardiac - Cardiogenic shock/cardiac arrestdifficult to rule out sepsis. Continue with Levophed and vasopressin to maintain mean arterial pressures above 65 mmHg. Hydrocortisone discontinued. Starting rewarming process at this time. Respiratory - Minimal vent settings at this time. Pulmonary edema has largely resolved. GI - N.p.o. RENAL/LYTES - AKIlikely ATN following cardiac arrest. Hyperkalemia noted today. Likely secondary to rewarming. 40 mg IV Lasix will be given. D50 insulin to be given. Continue frequent BMP checks. - Foleystrict I's and O's ENDO - No history diabetes or thyroid disease ICU hyperglycemic protocol HEME - Hemoglobin stable at this time, monitor routine CBCs ID - Continue Zosyn for possible sepsis. Possible UTI. LINES/IV ACCESS - right femoral intravascular cooling catheter DVT PROPHYLAXIS - SCDs Patient's mother was updated at bedside. She is very emotional. Condolences were offered. Palliative care has been consulted. I have personally spent 40 minutes of critical care time in the direct management of this patient. This is a life/limb threatening event. This includes time spent evaluating patient, direct bedside care, chart review, placing orders, interpretation of diagnostic studies, discussion with consultants, patient, and family members, as well as other required patient management activities. This time is exclusive of all separately billable procedures, and teaching time and separate from and in addition to any other critical care service time. Thank you for allowing us to participate in the care of this patient. Please refer to my attending physician's documentation for any further recommendations. (2) Anoxic brain injury: (3) Overdose: (4) Cardiac arrest: (5) Methamphetamine abuse: (6) Ventricular fibrillation: Admission and Anticipated Discharge Date Admission Date: December 04, 2020 Subjective Patient seen and examined. Propofol started overnight due to frequent myoclonic jerking activity. Patient unresponsive to commands. Minimal vent support required. Currently on Levophed. Epinephrine was weaned off yesterday. No significant events otherwise. Review of Systems Review of Systems: Unobtainable due to cognitive status Physical Exam Constitutional: + ill appearing and + altered mental status Respiratory: normal respiratory effort, lungs clear to auscultation Cardiovascular: RRR, no murmur, no edema Gastrointestinal (Abdomen): normal bowel sounds, soft, nontender, no hepatosplenomegaly Musculoskeletal: no cyanosis or clubbing, extremities motor strength 5/5 Skin: no rashes, warm and dry Neurologic: Obtunded. Frequent myoclonic jerking. Psychiatric: Unable to assess Results & Data Results & Data ([facility]) Vital Signs (Past 12 Hours) Vital Signs Temp Temp Temp Pulse Resp BP Pulse Ox 12/05/20 10:00 92.3 F L 92.3 F L 53 L 24 128/75 91 12/05/20 09:00 91.8 F L 91.8 F L 91.8 F L 62 24 127/71 83 L 12/05/20 08:14 56 L 24 86 L 12/05/20 08:00 91.2 F L 91.2 F L 91.2 F L 58 L 24 112/69 86 L 12/05/20 07:00 91.8 F L 91.8 F L 91.8 F L 61 24 109/55 L 79 L 12/05/20 06:45 91.4 F L 66 79 L 12/05/20 06:30 91.0 F L 66 73 L 12/05/20 06:15 90.9 F L 65 76 L 12/05/20 06:00 90.9 F L 90.9 F L 63 24 106/68 12/05/20 05:45 91.0 F L 59 L 12/05/20 05:30 91.8 F L 56 L 12/05/20 05:15 92.1 F L 62 91 12/05/20 05:00 91.9 F L 91.9 F L 72 31 H 143/80 H 85 L 12/05/20 04:45 91.6 F L 77 12/05/20 04:30 91.4 F L 79 91 12/05/20 04:15 91.4 F L 75 90 12/05/20 04:00 91.4 F L 91.4 F L 73 31 H 146/78 H 94 12/05/20 03:45 91.6 F L 72 91 12/05/20 03:36 73 34 H 93 12/05/20 03:30 91.6 F L 77 94 12/05/20 03:15 91.2 F L 78 12/05/20 03:00 90.9 F L 90.9 F L 72 29 H 139/80 99 12/05/20 02:45 91.4 F L 64 100 12/05/20 02:30 92.1 F L 65 100 12/05/20 02:15 92.1 F L 73 97 12/05/20 02:00 91.6 F L 91.6 F L 77 32 H 142/77 H 98 12/05/20 01:45 91.4 F L 79 12/05/20 01:30 91.4 F L 77 12/05/20 01:15 91.2 F L 78 12/05/20 01:00 91.0 F L 91.0 F L 72 26 H 145/82 H 12/05/20 00:45 91.8 F L 66 100 12/05/20 00:30 92.3 F L 72 98 12/05/20 00:15 92.3 F L 81 98 12/05/20 00:00 91.8 F L 91.8 F L 85 33 H 134/76 100 12/04/20 23:45 91.2 F L 84 100 12/04/20 23:37 79 30 H 12/04/20 23:30 91.2 F L 78 100 12/04/20 23:15 91.4 F L 77 100 12/04/20 23:00 91.4 F L 91.4 F L 77 28 H 134/80 98 vital signs, labs and imaging reviewed Coding Level of Care Code Critical Care 1st 30-74 mins Diagnoses Cardiogenic shock R57.0 Anoxic brain injury G93.1 Overdose T50.901A Cardiac arrest I46.9 Methamphetamine abuse F15.10 Ventricular fibrillation I49.01 Time Spent (min) 40
[2020-12-05 12:08] LABS: Albumin Level 2.3 gm/dl (3.4-5.0); BUN Creatinine Ratio 22.5 (10-20); Calcium 8.4 mg/dl (8.5-10.1); Creatinine Clr Calc Pharmacy 41.6 ml/min; Est GFR (African American) 44.5 ml/min; Est GFR (Non-African American) 38.4 ml/min; Potassium 5.2 mmol/L (3.5-5.1)
[2020-12-05 12:11] LABS: Bilirubin,Total 0.7 mg/dl (0.2-1); Total Protein 4.7 gm/dl (6.4-8.2)
[2020-12-05 12:23] LABS: Bilirubin Direct 0.2 mg/dl (0-0.2)
[2020-12-05] MEDS: AMIODARONE / D5W 360 MG/200 ML BAG IV SCH ×2 (12:24→23:31)
--- NOTE | 2020-12-05 14:17 | Palliative Care Progress Note ---
Date of Service December 05, 2020 Assessment & Plan (1) Palliative care encounter: I met with Nyasia's mother at bedside, along with Nyasia's Aunt and Uncle. They are fully aware of the gravity of Nyasia's condition and plan to stay local to help support her. Nyasia's mother, Ivania, is struggling with the fact that she can't see her two grandchildren ages 12 and 9. She is debating telling their father the gravity of the situation, so we talked through some of those logistics. Ivania and Nyasia have been very close and she has seen Nyasia struggle with her illness. Ivania wishes she would wake up, but knows the reality of that is low. We discussed the role of palliative care to provide support and to help navigate with difficult decision making. At this time she remains hypothermic, but will be rewarmed fully overnight.She was placed on Propofol as she was having anoxic like twitching of her head and limbs. She does not have a gag or corneal reflex. 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 Palliative care will follow. (2) Anoxic brain injury: (3) Cardiac arrest: (4) Overdose: Admission and Anticipated Discharge Date Admission Date: December 04, 2020 Subjective Pt remains hypothermic and will reach full rewarmed temperature overnight tonight. She is on inotropic pressor support and the ventilator. Pt has mother, aunt, and uncle at bedside. Pt with brain injury reflex twitching noted, now on Propofol. See A/P for further details Review of Systems Review of Systems: Unobtainable due to endotracheal tube Physical Exam Constitutional: no acute distress Neurologic: + obtunded Results & Data ([facility]) Vital Signs (Past 12 Hours) Vital Signs Temp Temp Temp Pulse Resp BP BP 12/05/20 13:00 34.5 C L 34.5 C L 66 24 137/77 12/05/20 12:00 34.0 C L 34 C L 34 C L 64 24 133/75 12/05/20 11:22 34.0 C L 68 12/05/20 11:14 67 24 12/05/20 11:00 33.7 C L 33.7 C L 64 24 134/74 12/05/20 10:00 33.6 C L 33.5 C L 33.5 C L 51 L 24 130/103 H 128/75 12/05/20 09:00 33.2 C L 33.2 C L 33.2 C L 62 24 127/71 12/05/20 08:14 56 L 24 12/05/20 08:00 32.9 C L 32.9 C L 32.9 C L 58 L 24 112/69 12/05/20 07:00 33.2 C L 33.2 C L 33.2 C L 61 24 109/55 L 12/05/20 06:45 33.0 C L 66 12/05/20 06:30 32.8 C L 66 12/05/20 06:15 32.7 C L 65 12/05/20 06:00 32.7 C L 32.7 C L 63 24 106/68 12/05/20 05:45 32.8 C L 59 L 12/05/20 05:30 33.2 C L 56 L 12/05/20 05:15 33.4 C L 62 12/05/20 05:00 33.3 C L 33.3 C L 72 31 H 143/80 H 12/05/20 04:45 33.1 C L 77 12/05/20 04:30 33.0 C L 79 12/05/20 04:15 33.0 C L 75 12/05/20 04:00 33.0 C L 33.0 C L 73 31 H 146/78 H 12/05/20 03:45 33.1 C L 72 12/05/20 03:36 73 34 H 12/05/20 03:30 33.1 C L 77 12/05/20 03:15 32.9 C L 78 12/05/20 03:00 32.7 C L 32.7 C L 72 29 H 139/80 12/05/20 02:45 33.0 C L 64 12/05/20 02:30 33.4 C L 65 12/05/20 02:15 33.4 C L 73 Pulse Ox 12/05/20 13:00 92 12/05/20 12:00 92 12/05/20 11:22 79 L 12/05/20 11:14 95 12/05/20 11:00 98 12/05/20 10:00 89 L 12/05/20 09:00 83 L 12/05/20 08:14 86 L 12/05/20 08:00 86 L 12/05/20 07:00 79 L 12/05/20 06:45 79 L 12/05/20 06:30 73 L 12/05/20 06:15 76 L 12/05/20 06:00 12/05/20 05:45 12/05/20 05:30 12/05/20 05:15 91 12/05/20 05:00 85 L 12/05/20 04:45 12/05/20 04:30 91 12/05/20 04:15 90 12/05/20 04:00 94 12/05/20 03:45 91 12/05/20 03:36 93 12/05/20 03:30 94 12/05/20 03:15 12/05/20 03:00 99 12/05/20 02:45 100 12/05/20 02:30 100 12/05/20 02:15 97 PG Care Time/CCT Total # of Minutes Spent Total Time Spent with Patient: Total time spent is greater than 50% in coordination of care (as documented) at patient's floor/unit and/or counseling patient: 35 minutes with >50% of that time spent assessing the patient, discussing goals of care and offering support to family, and collaborating with IDT Coding Level of Care Code 71769 Subseq Hosp Care Lvl 3 Diagnoses Palliative care encounter Z51.5 Anoxic brain injury G93.1 Cardiac arrest I46.9 Overdose T50.901A Time Spent (min) 35
--- NOTE | 2020-12-05 15:06 | Electrocardiogram Report ---
Test Reason : Blood Pressure : / mmHG Vent. Rate : 081 BPM Atrial Rate : 081 BPM P-R Int : 180 ms QRS Dur : 114 ms QT Int : 442 ms P-R-T Axes : 071 084 -52 degrees QTc Int : 513 ms Normal sinus rhythm T wave abnormality, consider inferior ischemia T wave abnormality, consider anterior ischemia Prolonged QT Abnormal ECG When compared with ECG of 04-DEC-2020 10:15, [place] interval has decreased QT has lengthened Confirmed by Efrain Cabrales ([id number]) on 12/05/2020 3:06:26 PM Referred By: REFERRED SELF Confirmed By:Earl Cabrales
--- NOTE | 2020-12-05 15:09 | Electrocardiogram Report ---
Test Reason : Blood Pressure : / mmHG Vent. Rate : 078 BPM Atrial Rate : 078 BPM P-R Int : 196 ms QRS Dur : 110 ms QT Int : 462 ms P-R-T Axes : 068 084 039 degrees QTc Int : 526 ms Normal sinus rhythm Prolonged QT Abnormal ECG When compared with ECG of 04-DEC-2020 19:54, (unconfirmed) Nonspecific T wave abnormality has replaced inverted T waves in Inferior leads Confirmed by Efrain Cabrales ([id number]) on 12/05/2020 3:09:09 PM Referred By: REFERRED SELF Confirmed By:Earl Cabrales
--- NOTE | 2020-12-05 15:11 | Electrocardiogram Report ---
Test Reason : Blood Pressure : / mmHG Vent. Rate : 061 BPM Atrial Rate : 061 BPM P-R Int : 214 ms QRS Dur : 112 ms QT Int : 532 ms P-R-T Axes : 042 077 053 degrees QTc Int : 535 ms Age and gender specific ECG analysis Sinus rhythm with 1st degree AV block ST elevation consider lateral injury or acute infarct Prolonged QT Abnormal ECG When compared with ECG of 04-DEC-2020 23:11, (unconfirmed) No significant change was found Confirmed by Efrain Cabrales ([id number]) on 12/05/2020 3:10:35 PM Referred By: REFERRED SELF Confirmed By:Earl Cabrales
--- NOTE | 2020-12-05 15:17 | Electrocardiogram Report ---
Test Reason : Blood Pressure : / mmHG Vent. Rate : 069 BPM Atrial Rate : 069 BPM P-R Int : 160 ms QRS Dur : 098 ms QT Int : 506 ms P-R-T Axes : 053 082 030 degrees QTc Int : 542 ms Normal sinus rhythm T wave abnormality, consider anterior ischemia Prolonged QT Abnormal ECG When compared with ECG of 05-DEC-2020 05:17, (unconfirmed) [place] interval has decreased T wave inversion no longer evident in Lateral leads Confirmed by Efrain Cabrales ([id number]) on 12/05/2020 3:16:36 PM Referred By: REFERRED SELF Confirmed By:Earl Cabrales
--- NOTE | 2020-12-05 16:27 | Electroencephalogram ---
EEG Procedure Note Date of Service December 05, 2020 Start / End Times Start Time: 11:02 AM End Time: 11:22 AM Referring Physician Ambrosio Bales History Status post cardiac arrest Inpatient Medication List Heparin Sodium (Porcine) (Heparin Sod 5,000 Unit/0.5 Ml Vial) 5,000 units SQ Q12H [facility] Stop: 01/03/21 10:59 Last Admin: 12/05/20 10:42 Dose: 5,000 units Documented by: [id number] Admin: 12/04/20 23:54 Dose: 5,000 units Documented by: [id number] Admin: 12/04/20 11:25 Dose: 5,000 units Documented by: [id number] Amiodarone HCl/Dextrose (Nexterone / D5w) 360 mg in 200 mls @ 16.667 mls/hr IV .Q12H [facility] Stop: 01/03/21 10:49 Last Admin: 12/05/20 12:24 Dose: 0.5 mg/min, 16.7 mls/hr Documented by: [id number] Cosigned by: [id number] Infusion: 12/05/20 11:56 Dose: 0.5 mg/min, 16.7 mls/hr Documented by: [id number] Cosigned by: [id number] Infusion: 12/05/20 06:50 Dose: 0.5 mg/min, 16.7 mls/hr Documented by: [id number] Cosigned by: [id number] Admin: 12/04/20 23:57 Dose: 0.5 mg/min, 16.7 mls/hr Documented by: [id number] Cosigned by: [id number] Infusion: 12/04/20 23:24 Dose: 0.5 mg/min, 16.7 mls/hr Documented by: [id number] Cosigned by: [id number] Infusion: 12/04/20 19:02 Dose: 0.5 mg/min, 16.7 mls/hr Documented by: [id number] Cosigned by: [id number] Admin: 12/04/20 11:25 Dose: 0.5 mg/min, 16.7 mls/hr Documented by: [id number] Cosigned by: [id number] Norepinephrine Bitartrate (Levophed/D5w) 8 mg in 508 mls @ 18.288 mls/hr IV .Q24H [facility]; Protocol Stop: 01/03/21 04:59 Last Titration: 12/05/20 15:00 Dose: 0.06 mcg/kg/min, 13.7 mls/hr Documented by: [id number] Titration: 12/05/20 13:37 Dose: 0.08 mcg/kg/min, 18.3 mls/hr Documented by: [id number] Titration: 12/05/20 09:30 Dose: 0.1 mcg/kg/min, 22.9 mls/hr Documented by: [id number] Titration: 12/05/20 08:00 Dose: 0.12 mcg/kg/min, 27.4 mls/hr Documented by: [id number] Titration: 12/05/20 06:50 Dose: 0.14 mcg/kg/min, 32 mls/hr Documented by: [id number] Cosigned by: [id number] Admin: 12/05/20 05:40 Dose: Not Given Documented by: [id number] Titration: 12/05/20 02:48 Dose: 0.14 mcg/kg/min, 32 mls/hr Documented by: [id number] Titration: 12/05/20 02:10 Dose: 0.16 mcg/kg/min, 36.6 mls/hr Documented by: [id number] Admin: 12/04/20 23:59 Dose: 0.18 mcg/kg/min, 41.1 mls/hr Documented by: [id number] Cosigned by: [id number] Titration: 12/04/20 23:59 Dose: 0.18 mcg/kg/min, 41.1 mls/hr Documented by: [id number] Cosigned by: [id number] Titration: 12/04/20 19:02 Dose: 0.18 mcg/kg/min, 41.1 mls/hr Documented by: [id number] Cosigned by: [id number] Titration: 12/04/20 17:25 Dose: 0.2 mcg/kg/min, 45.7 mls/hr Documented by: [id number] Titration: 12/04/20 17:15 Dose: 0.22 mcg/kg/min, 50.3 mls/hr Documented by: [id number] Titration: 12/04/20 16:51 Dose: 0.24 mcg/kg/min, 54.9 mls/hr Documented by: [id number] Titration: 12/04/20 16:26 Dose: 0.26 mcg/kg/min, 59.4 mls/hr Documented by: [id number] Titration: 12/04/20 15:48 Dose: 0.28 mcg/kg/min, 64 mls/hr Documented by: [id number] Titration: 12/04/20 14:29 Dose: 0.3 mcg/kg/min, 68.6 mls/hr Documented by: [id number] Titration: 12/04/20 14:18 Dose: 0.33 mcg/kg/min, 75.4 mls/hr Documented by: [id number] Admin: 12/04/20 14:07 Dose: 0.35 mcg/kg/min, 80 mls/hr Documented by: [id number] Cosigned by: [id number] Titration: 12/04/20 14:07 Dose: 0.33 mcg/kg/min, 75.4 mls/hr Documented by: [id number] Cosigned by: [id number] Titration: 12/04/20 13:00 Dose: 0.33 mcg/kg/min, 75.4 mls/hr Documented by: [id number] Titration: 12/04/20 12:55 Dose: 0.33 mcg/kg/min, 75.4 mls/hr Documented by: [id number] Titration: 12/04/20 12:30 Dose: 0.3 mcg/kg/min, 68.6 mls/hr Documented by: [id number] Titration: 12/04/20 11:14 Dose: 0.22 mcg/kg/min, 50.3 mls/hr Documented by: [id number] Titration: 12/04/20 07:05 Dose: 0.2 mcg/kg/min, 45.7 mls/hr Documented by: [id number] Cosigned by: [id number] Admin: 12/04/20 06:44 Dose: 0.2 mcg/kg/min, 45.7 mls/hr Documented by: [id number] Cosigned by: [id number] Fentanyl Citrate (Fentanyl Drip) 1,250 mcg in 250 mls @ 5 mls/hr IV .Q50H [facility]; Protocol Stop: 12/18/20 07:14 Last Titration: 12/05/20 06:50 Dose: 25 mcg/hr, 5 mls/hr Documented by: [id number] Cosigned by: [id number] Titration: 12/04/20 19:02 Dose: 25 mcg/hr, 5 mls/hr Documented by: [id number] Cosigned by: [id number] Admin: 12/04/20 07:57 Dose: 25 mcg/hr, 5 mls/hr Documented by: [id number] Cosigned by: [id number] Famotidine 20 mg/ Syringe 5 mls @ 2.5 mls/min IV BID [facility] Stop: 01/03/21 08:59 Last Admin: 12/05/20 08:18 Dose: 2.5 mls/min Documented by: [id number] Admin: 12/04/20 21:51 Dose: 2.5 mls/min Documented by: [id number] Admin: 12/04/20 08:26 Dose: 2.5 mls/min Documented by: [id number] Vasopressin 20 units/ Sodium (Chloride) 101 mls @ 12.12 mls/hr IV .Q8H20M [facility] Stop: 01/03/21 08:59 Last Admin: 12/05/20 10:37 Dose: 0.04 unit/min, 12.1 mls/hr Documented by: [id number] Cosigned by: [id number] Infusion: 12/05/20 10:37 Dose: 0.04 unit/min, 12.1 mls/hr Documented by: [id number] Cosigned by: [id number] Infusion: 12/05/20 06:50 Dose: 0.04 unit/min, 12.1 mls/hr Documented by: [id number] Cosigned by: [id number] Admin: 12/05/20 02:40 Dose: 0.04 unit/min, 12.1 mls/hr Documented by: [id number] Cosigned by: [id number] Infusion: 12/05/20 00:33 Dose: 0.04 unit/min, 12.1 mls/hr Documented by: [id number] Cosigned by: [id number] Infusion: 12/04/20 19:02 Dose: 0.04 unit/min, 12.1 mls/hr Documented by: [id number] Cosigned by: [id number] Admin: 12/04/20 16:12 Dose: 0.04 unit/min, 12.1 mls/hr Documented by: [id number] Cosigned by: [id number] Infusion: 12/04/20 16:12 Dose: 0.04 unit/min, 12.1 mls/hr Documented by: [id number] Cosigned by: [id number] Admin: 12/04/20 09:17 Dose: 0.04 unit/min, 12.1 mls/hr Documented by: [id number] Cosigned by: [id number] Piperacillin Sod/Tazobactam (Sod 3.375 gm/ Dextrose) 115 mls @ 28.75 mls/hr IV Q8H [facility]; Protocol Stop: 12/11/20 13:59 Last Admin: 12/05/20 13:36 Dose: 28.8 mls/hr, 28.8 mls/hr Documented by: [id number] Infusion: 12/05/20 10:43 Dose: 0 mls/hr, 0 mls/hr Documented by: [id number] Admin: 12/05/20 06:31 Dose: 28.8 mls/hr, 28.8 mls/hr Documented by: [id number] Infusion: 12/05/20 01:52 Dose: 0 mls/hr, 0 mls/hr Documented by: [id number] Admin: 12/04/20 21:52 Dose: 28.8 mls/hr, 28.8 mls/hr Documented by: [id number] Infusion: 12/04/20 19:23 Dose: 0 mls/hr, 0 mls/hr Documented by: [id number] Admin: 12/04/20 15:12 Dose: 28.8 mls/hr, 28.8 mls/hr Documented by: [id number] Propofol (Diprivan) 1,000 mg in 100 mls @ 6.792 mls/hr IV .[id number] [facility]; Protocol Stop: 12/08/20 04:44 Last Admin: 12/05/20 15:46 Dose: 20 mcg/kg/min, 6.8 mls/hr Documented by: [id number] Cosigned by: [id number] Titration: 12/05/20 15:46 Dose: 20 mcg/kg/min, 6.8 mls/hr Documented by: [id number] Cosigned by: [id number] Titration: 12/05/20 06:50 Dose: 20 mcg/kg/min, 6.8 mls/hr Documented by: [id number] Cosigned by: [id number] Admin: 12/05/20 04:53 Dose: 20 mcg/kg/min, 6.8 mls/hr Documented by: [id number] Cosigned by: [id number] Insulin Aspart (Insulin Aspart 100 Units/Ml 3 Ml Pen) 0 units SC Q4 [facility]; Protocol Stop: 01/03/21 14:59 Last Admin: 12/05/20 12:24 Dose: 3 units Documented by: [id number] Cosigned by: [id number] Admin: 12/05/20 08:54 Dose: Not Given Documented by: [id number] Cosigned by: [id number] Admin: 12/05/20 04:24 Dose: Not Given Documented by: [id number] Cosigned by: [id number] Admin: 12/05/20 00:08 Dose: Not Given Documented by: [id number] Cosigned by: [id number] Admin: 12/04/20 20:52 Dose: Not Given Documented by: [id number] Cosigned by: [id number] Admin: 12/04/20 16:11 Dose: 4 units Documented by: [id number] Cosigned by: [id number] Propofol (Propofol Bolus From Bag) 20 mg IV Q5M PRN PRN Reason: Sedation Stop: 12/08/20 04:41 Last Admin: 12/05/20 04:54 Dose: 20 mg Documented by: [id number] Cosigned by: [id number] Discontinued Medications Amiodarone HCl/Dextrose (Amiodarone 360mg / 200ml D5w) Confirm Administered Dose 360 mg IV .STK-MED ONE Stop: 12/04/20 03:45 Last Admin: 12/04/20 06:38 Dose: Not Given Documented by: [id number] Amiodarone HCl/Dextrose (Amiodarone 360mg / 200ml D5w) Confirm Administered Dose 360 mg IV .STK-MED ONE Stop: 12/04/20 04:12 Last Admin: 12/04/20 06:38 Dose: Not Given Documented by: [id number] Amiodarone HCl (Amiodarone Iv Bolus & Drip) 1 ea IV NOW STA; Protocol Stop: 12/04/20 04:52 Last Admin: 12/04/20 06:39 Dose: Not Given Documented by: [id number] Calcium Chloride (Calcium Chloride 10% 10 Ml Syr) Confirm Administered Dose 2,000 mg IV .STK-MED ONE Stop: 12/04/20 03:52 Last Admin: 12/04/20 06:38 Dose: Not Given Documented by: [id number] Dextrose (Dextrose 50% 50 Ml Syringe) Confirm Administered Dose 50 ml IV .STK- MED ONE Stop: 12/04/20 03:56 Last Admin: 12/04/20 06:38 Dose: Not Given Documented by: [id number] Dextrose (Dextrose 50% 50 Ml Syringe) 50 ml IV ONE ONE Stop: 12/05/20 10:01 Last Admin: 12/05/20 10:41 Dose: 50 ml Documented by: [id number] Epinephrine HCl (Epinephrine 1.5" Ndl 0.1 Mg/Ml Syr) Confirm Administered Dose 2 mg IV .STK-MED ONE Stop: 12/04/20 04:30 Last Admin: 12/04/20 04:34 Dose: 2 mg Documented by: [id number] Furosemide (Furosemide 40 Mg/4 Ml Vial) 40 mg IV NOW STA Stop: 12/05/20 10:04 Last Admin: 12/05/20 10:41 Dose: 40 mg Documented by: [id number] Amiodarone HCl/Dextrose (Nexterone / D5w) 150 mg in 100 mls @ 600 mls/hr IV NOW STA Stop: 12/04/20 05:00 Last Infusion: 12/04/20 05:29 Dose: 0 mls/hr Documented by: [id number] Cosigned by: [id number] Admin: 12/04/20 05:14 Dose: 600 mls/hr Documented by: [id number] Cosigned by: [id number] Amiodarone HCl/Dextrose (Nexterone / D5w) 360 mg in 200 mls @ 33.333 mls/hr IV ONE ONE Stop: 12/04/20 10:50 Last Infusion: 12/04/20 14:19 Dose: 0 mls/hr Documented by: [id number] Cosigned by: [id number] Infusion: 12/04/20 07:05 Dose: 33.3 mls/hr Documented by: [id number] Cosigned by: [id number] Infusion: 12/04/20 06:44 Dose: 33.3 mls/hr Documented by: [id number] Cosigned by: [id number] Admin: 12/04/20 05:14 Dose: 33.3 mls/hr Documented by: [id number] Cosigned by: [id number] Epinephrine HCl () 4 mg in 254 mls @ 4.572 mls/hr IV .Q24H [facility]; Protocol Stop: 01/03/21 04:59 Last Titration: 12/04/20 19:02 Dose: 0 mcg/kg/min, 0 mls/hr Documented by: [id number] Cosigned by: [id number] Titration: 12/04/20 15:49 Dose: 0 mcg/kg/min, 0 mls/hr Documented by: [id number] Titration: 12/04/20 15:14 Dose: 0.03 mcg/kg/min, 6.9 mls/hr Documented by: [id number] Titration: 12/04/20 14:18 Dose: 0.05 mcg/kg/min, 11.4 mls/hr Documented by: [id number] Titration: 12/04/20 13:41 Dose: 0.07 mcg/kg/min, 16 mls/hr Documented by: [id number] Titration: 12/04/20 13:30 Dose: 0.08 mcg/kg/min, 18.3 mls/hr Documented by: [id number] Titration: 12/04/20 13:10 Dose: 0.09 mcg/kg/min, 20.6 mls/hr Documented by: [id number] Titration: 12/04/20 11:24 Dose: 0.1 mcg/kg/min, 22.9 mls/hr Documented by: [id number] Titration: 12/04/20 11:13 Dose: 0.11 mcg/kg/min, 25.1 mls/hr Documented by: [id number] Titration: 12/04/20 11:00 Dose: 0.12 mcg/kg/min, 27.4 mls/hr Documented by: [id number] Admin: 12/04/20 10:57 Dose: 0.14 mcg/kg/min, 32 mls/hr Documented by: [id number] Cosigned by: [id number] Titration: 12/04/20 10:57 Dose: 0.12 mcg/kg/min, 27.4 mls/hr Documented by: [id number] Cosigned by: [id number] Titration: 12/04/20 10:08 Dose: 0.14 mcg/kg/min, 32 mls/hr Documented by: [id number] Titration: 12/04/20 10:01 Dose: 0.15 mcg/kg/min, 34.3 mls/hr Documented by: [id number] Titration: 12/04/20 09:35 Dose: 0.16 mcg/kg/min, 36.6 mls/hr Documented by: [id number] Titration: 12/04/20 09:19 Dose: 0.17 mcg/kg/min, 38.9 mls/hr Documented by: [id number] Titration: 12/04/20 09:00 Dose: 0.18 mcg/kg/min, 41.1 mls/hr Documented by: [id number] Titration: 12/04/20 08:45 Dose: 0.19 mcg/kg/min, 43.4 mls/hr Documented by: [id number] Titration: 12/04/20 07:05 Dose: 0.2 mcg/kg/min, 45.7 mls/hr Documented by: [id number] Cosigned by: [id number] Admin: 12/04/20 06:43 Dose: 0.2 mcg/kg/min, 45.7 mls/hr Documented by: [id number] Cosigned by: [id number] Potassium Chloride (K Melo / Wtr) 10 meq in 100 mls @ 100 mls/hr IV Q1H [facility] Stop: 12/04/20 05:54 Last Infusion: 12/04/20 10:08 Dose: 0 mls/hr Documented by: [id number] Admin: 12/04/20 07:15 Dose: 100 mls/hr Documented by: [id number] Sodium Chloride (Nss 1000ml) 1,000 mls @ 100 mls/hr IV .Q10H [facility] Stop: 01/03/21 07:14 Last Infusion: 12/04/20 14:20 Dose: 0 mls/hr Documented by: [id number] Admin: 12/04/20 07:32 Dose: 100 mls/hr Documented by: [id number] Ceftriaxone Sodium 2,000 mg/ (Dextrose) 70 mls @ 100 mls/hr IV Q24H [facility]; Protocol Stop: 12/09/20 07:59 Last Infusion: 12/04/20 09:03 Dose: 0 mls/hr Documented by: [id number] Admin: 12/04/20 07:31 Dose: 100 mls/hr Documented by: [id number] Insulin Human Regular 250 (units/ Sodium Chloride) 250 mls @ 0 mls/hr IV .Q0M [facility]; Protocol Stop: 01/03/21 08:59 Last Titration: 12/05/20 12:31 Dose: 0 units/hr, 0 mls/hr Documented by: [id number] Cosigned by: [id number] Titration: 12/04/20 19:02 Dose: 0 units/hr, 0 mls/hr Documented by: [id number] Cosigned by: [id number] Titration: 12/04/20 10:09 Dose: 0 units/hr, 0 mls/hr Documented by: [id number] Cosigned by: [id number] Admin: 12/04/20 09:45 Dose: 2.1 units/hr, 2.1 mls/hr Documented by: [id number] Cosigned by: [id number] Hydrocortisone Sodium (Succinate 50 mg/ Syringe) 1 mls @ 4 mls/min IV Q6H [facility] Stop: 01/03/21 08:59 Last Admin: 12/05/20 08:16 Dose: 4 mls/min Documented by: [id number] Admin: 12/05/20 03:05 Dose: 4 mls/min Documented by: [id number] Admin: 12/04/20 21:51 Dose: 4 mls/min Documented by: [id number] Admin: 12/04/20 15:13 Dose: 4 mls/min Documented by: [id number] Admin: 12/04/20 09:18 Dose: 4 mls/min Documented by: [id number] Piperacillin Sod/Tazobactam (Sod 3.375 gm/ Dextrose) 115 mls @ 230 mls/hr IV ONE ONE; Protocol Stop: 12/04/20 10:29 Last Infusion: 12/04/20 11:13 Dose: 0 mls/hr Documented by: [id number] Admin: 12/04/20 09:58 Dose: 230 mls/hr Documented by: [id number] Potassium Chloride (K Melo / Wtr) 10 meq in 100 mls @ 200 mls/hr IV Q30M [facility] Stop: 12/04/20 10:59 Last Infusion: 12/04/20 14:19 Dose: 0 mls/hr Documented by: [id number] Admin: 12/04/20 10:30 Dose: 200 mls/hr Documented by: [id number] Potassium Chloride (K Melo / Wtr) 10 meq in 100 mls @ 100 mls/hr IV Q1H [facility] Stop: 12/04/20 10:29 Last Infusion: 12/04/20 11:13 Dose: 0 mls/hr Documented by: [id number] Admin: 12/04/20 09:35 Dose: 100 mls/hr Documented by: [id number] Infusion: 12/04/20 09:30 Dose: 100 mls/hr Documented by: [id number] Admin: 12/04/20 08:30 Dose: 100 mls/hr Documented by: [id number] Parenteral Electrolytes (Normosol-R) 1,000 mls @ 80 mls/hr IV .[id number] [facility] Stop: 01/03/21 13:59 Last Infusion: 12/05/20 11:00 Dose: 0 mls/hr Documented by: [id number] Admin: 12/05/20 06:49 Dose: 80 mls/hr Documented by: [id number] Infusion: 12/05/20 02:50 Dose: 80 mls/hr Documented by: [id number] Infusion: 12/04/20 19:02 Dose: 80 mls/hr Documented by: [id number] Admin: 12/04/20 14:20 Dose: 80 mls/hr Documented by: [id number] Potassium Chloride (K Melo / Wtr) 20 meq in 100 mls @ 100 mls/hr IV Q1H [facility] Stop: 12/04/20 16:44 Last Infusion: 12/04/20 19:12 Dose: 0 mls/hr Documented by: [id number] Admin: 12/04/20 16:13 Dose: 100 mls/hr Documented by: [id number] Infusion: 12/04/20 16:13 Dose: 100 mls/hr Documented by: [id number] Admin: 12/04/20 15:13 Dose: 100 mls/hr Documented by: [id number] Potassium Chloride (K Melo / Wtr) 20 meq in 100 mls @ 50 mls/hr IV Q2H [facility] Stop: 12/05/20 01:25 Last Infusion: 12/05/20 01:56 Dose: 0 mls/hr Documented by: [id number] Admin: 12/04/20 23:56 Dose: 50 mls/hr Documented by: [id number] Infusion: 12/04/20 23:51 Dose: 50 mls/hr Documented by: [id number] Admin: 12/04/20 21:51 Dose: 50 mls/hr Documented by: [id number] Insulin Human Regular 10 units (/ Syringe) 10 mls @ 30 mls/min IV ONE ONE Stop: 12/05/20 10:02 Last Admin: 12/05/20 10:36 Dose: 30 mls/min Documented by: [id number] Cosigned by: [id number] Insulin Aspart (Insulin Aspart 100 Units/Ml 3 Ml Pen) 0 units SC ACHS [facility] Stop: 01/03/21 11:29 Last Admin: 12/04/20 14:17 Dose: Not Given Documented by: [id number] Cosigned by: [id number] Insulin Human Regular (Novolin-R Bolus From Bag) 2 units IV ONE ONE Stop: 12/04/20 09:16 Last Admin: 12/04/20 09:45 Dose: 2 units Documented by: [id number] Cosigned by: [id number] Midazolam HCl (Midazolam Hcl 1 Mg/Ml 2ml Vial) Confirm Administered Dose 2 mg .ROUTE .STK-MED ONE Stop: 12/04/20 06:16 Last Admin: 12/04/20 06:45 Dose: 2 mg Documented by: [id number] Midazolam HCl (Midazolam Hcl 1 Mg/Ml 2ml Vial) 2 mg IV NOW STA Stop: 12/04/20 06:41 Last Admin: 12/04/20 06:53 Dose: Not Given Documented by: [id number] Miscellaneous (Stat Iv Infusion Titration Per Protocol) 1 ea N/A NOW STA Stop: 12/04/20 04:52 Last Admin: 12/04/20 06:39 Dose: Not Given Documented by: [id number] Miscellaneous (Stat Iv Infusion Titration Per Protocol) 1 ea N/A NOW STA Stop: 12/04/20 04:52 Last Admin: 12/04/20 06:39 Dose: Not Given Documented by: [id number] Miscellaneous (Stat Iv Infusion Titration Per Protocol) 1 ea N/A NOW STA Stop: 12/04/20 04:55 Last Admin: 12/04/20 06:39 Dose: Not Given Documented by: [id number] Miscellaneous (Pending Order: Begin Iv Insulin Drip When K+ 3.3 Or Greater) 1 ea N/A Q4 [facility] Stop: 01/03/21 15:59 Last Admin: 12/05/20 05:39 Dose: Not Given Documented by: [id number] Admin: 12/05/20 00:30 Dose: Not Given Documented by: [id number] Admin: 12/04/20 20:52 Dose: Not Given Documented by: [id number] Admin: 12/04/20 20:51 Dose: Not Given Documented by: [id number] Miscellaneous Information (Patient's Allergy Info Needs Entered) 1 ea N/A Q30M [facility] Stop: 01/03/21 07:29 Last Admin: 12/04/20 16:50 Dose: 1 ea Documented by: [id number] Admin: 12/04/20 16:50 Dose: 1 ea Documented by: [id number] Admin: 12/04/20 16:50 Dose: 1 ea Documented by: [id number] Admin: 12/04/20 16:50 Dose: 1 ea Documented by: [id number] Admin: 12/04/20 16:50 Dose: 1 ea Documented by: [id number] Admin: 12/04/20 16:49 Dose: 1 ea Documented by: [id number] Admin: 12/04/20 16:49 Dose: 1 ea Documented by: [id number] Admin: 12/04/20 16:49 Dose: 1 ea Documented by: [id number] Admin: 12/04/20 16:49 Dose: 1 ea Documented by: [id number] Admin: 12/04/20 16:49 Dose: Not Given Documented by: [id number] Admin: 12/04/20 16:49 Dose: Not Given Documented by: [id number] Admin: 12/04/20 15:50 Dose: Not Given Documented by: [id number] Admin: 12/04/20 14:28 Dose: 1 ea Documented by: [id number] Admin: 12/04/20 14:28 Dose: 1 ea Documented by: [id number] Admin: 12/04/20 14:22 Dose: 1 ea Documented by: [id number] Naloxone HCl (Naloxone Hcl 0.4 Mg/1 Ml Vial/Carp) Confirm Administered Dose 0.4 mg .ROUTE .STK-MED ONE Stop: 12/04/20 03:32 Last Admin: 12/04/20 06:38 Dose: Not Given Documented by: [id number] Norepinephrine Bitartrate (Norepinephrine/D5w 8 Mg/508 Ml) Confirm Administered Dose 8 mg IV .STK-MED ONE Stop: 12/04/20 04:21 Last Admin: 06/16/21 04:24 Dose: 8 mg Documented by: [id number] Potassium Chloride (Potassium Chloride Crtab 20 Meq Tabcr) 20 meq PO NOW STA Stop: 12/04/20 08:53 Last Admin: 12/04/20 09:17 Dose: 20 meq Documented by: [id number] Potassium Chloride (Potassium Chloride 20 Meq/15 Ml Udc) 40 meq NG NOW STA Stop: 12/04/20 14:42 Last Admin: 12/04/20 15:12 Dose: 40 meq Documented by: [id number] Sodium Bicarbonate (Sodium Bicarbonate 4.2% Inj 10 Ml Syr) Confirm Administered Dose 10 meq IV .STK-MED ONE Stop: 12/04/20 04:04 Last Admin: 12/04/20 06:38 Dose: Not Given Documented by: [id number] Sodium Bicarbonate (Sodium Bicarbonate 8.4% Inj 50 Meq/50 Ml Vial) Confirm Administered Dose 100 meq .ROUTE .STK-MED ONE Stop: 12/04/20 04:06 Last Admin: 12/04/20 06:38 Dose: Not Given Documented by: [id number] Description This is a 21 electrode EEG with a single channel dedicated to limited EKG. The electrodes were placed in accordance with the International 10-20 system. The background rhythm consists of low amplitude generalized theta slowing. There are periodic complex frontal discharges that appear fairly continuously throughout the study and correlate with myoclonic head and limb jerking on video component. 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 These EEG findings would predict a poor prognosis in the context of anoxic brain injury [facility] EEG Procedure Codes Indication for Procedure (1) Anoxic brain injury: (2) Overdose: (3) Cardiac arrest: Neurology Neurology: 79402 EEG include record awake & drowsy
[2020-12-05 16:38] LABS: BUN Creatinine Ratio 21.1 (10-20); Calcium 8.5 mg/dl (8.5-10.1); Creatinine Clr Calc Pharmacy 41.6 ml/min; Est GFR (African American) 44.5 ml/min; Est GFR (Non-African American) 38.4 ml/min; Potassium 5.5 mmol/L (3.5-5.1)
--- NOTE | 2020-12-05 17:20 | Hospitalist Progress Note ---
Date of Service December 05, 2020 Assessment & Plan (1) Cardiac arrest: 35yo female presented to the EMS unresponsive and in cardiac arrest after being down in the setting of presumed methamphetamine overdose. Patient is in cardiogenic shock requiring multiple pressors and undergoing therapeutic hypothermia. Anoxic brain injury Found down by a friend after an estimated 30 minutes, subsequently received one hour of CPR for cardiac arrest before ROSC was achieved Unresponsive with signs of severe anoxic brain injury CT head negative for acute findings Patient currently undergoing rewarming after 24 hours of therapeutic hypothermia; EEG and neuro evaluation planned for 12/06 Management per ICU Cardiogenic shock Management per ICU; currently weaning off vasopressors Echo (12/04) with EF 20-25%, wall motion abnormalities Continue telemetry monitoring, management per ICU Acute hypoxic respiratory failure secondary to cardiac arrest Mechanically ventilated at this time, management per ICU: trending ABGs, wean vent as tolerated Telemetry monitoring EDDI Likely ATN secondary to cardiac arrest, resultant lack of perfusion Management per ICU: careful IV fluid resuscitation, avoid nephrotoxins, frequent BMP, electrolyte repletion as needed UTI UA turbid, 4+ bacteria Continue ceftriaxone IV per ICU Hypercalcemia Management per ICU FEN: NPO Code status: full code DVT ppx: heparin Consults: ICU, palliative care Dispo: ICU, prognosis poor Admission and Anticipated Discharge Date Admission Date: December 04, 2020 Supervising Physician Co-Signing Physician Notes I also saw the patient with the resident physician and confirmed martin portions of the history and physical examination. Agree with the impression and plan as noted in the resident documentation. ICU team providing care; family medicine following along for continuity of care showed the patient improvement transition out of the ICU, however at this time that appears unlikely. The patient's family has arrived from [place] yesterday and last evening. had visited with family earlier this morning. Palliative care is continue to follow Medically, she remains critically ill with a grim prognosis. Exam 143/122, 66, 24, 36.1 C, 87% mechanical ventilation , FiO2 40% Unresponsive. Obtunded Whole body twitching, initially intermittent this morning, now worsening and more persistent. Data EEG shows an abnormal awake/drowsy EEG consistent with severe anoxic encephalopathy and anoxic myoclonus. WBC 22, hemoglobin 13.1 7.34/PCO2 36/PO2 greater than 420 Potassium 5.2, repeat 5.5. BUN 36, creatinine 1.7 Calcium 8.5 Phosphorus 5.3 AST 353, ALT 331 Procalcitonin 51.7 Cardiac arrest secondary to drug overdose Anoxic brain injury Therapeutic hypothermic protocol Cardiogenic shock on multiple pressor agents Rewarming process continues, although prognosis is grim Propofol has been added for twitching Palliative care consultation appreciated [facility] of life program aware given the patient is an organ donor Subjective Patient seen and evaluated this morning; family present at bedside. Family requested legal transcriptionist for prayer; reached out to for help arranging this. Patient remains comatose. Place on propofol overnight to reduce myoclonic jerks, which has helped. Patient currently undergoing rewarming. Prognosis remains poor. Review of Systems Review of Systems: Unobtainable due to cognitive status Physical Exam Physical Exam: Constitutional: laying in bed, intubated and mechanically ventilated CV: heart sounds distant Resp: crackles heard throughout, mechanically ventilated with symmetric chest rise Neuro: unresponsive to verbal cues or nailbed pressure Results & Data Results & Data ([facility]) Vital Signs (Past 12 Hours) Vital Signs Temp Temp Temp Pulse Resp BP BP 12/05/20 16:00 35.1 C L 35.1 C L 35.1 C L 69 24 125/73 12/05/20 15:59 68 24 12/05/20 15:00 34.8 C L 34.8 C L 34.8 C L 73 24 142/117 H 130/75 12/05/20 14:00 34.6 C L 34.6 C L 34.6 C L 66 24 100/80 12/05/20 13:00 34.5 C L 34.5 C L 66 24 137/77 12/05/20 12:00 34.0 C L 34 C L 34 C L 64 24 133/75 12/05/20 11:22 34.0 C L 68 12/05/20 11:14 67 24 12/05/20 11:00 33.7 C L 33.7 C L 64 24 134/74 12/05/20 10:00 33.6 C L 33.5 C L 33.5 C L 51 L 24 130/103 H 128/75 12/05/20 09:00 33.2 C L 33.2 C L 33.2 C L 62 24 127/71 12/05/20 08:14 56 L 24 12/05/20 08:00 32.9 C L 32.9 C L 32.9 C L 58 L 24 112/69 12/05/20 07:00 33.2 C L 33.2 C L 33.2 C L 61 24 109/55 L 12/05/20 06:45 33.0 C L 66 12/05/20 06:30 32.8 C L 66 12/05/20 06:15 32.7 C L 65 12/05/20 06:00 32.7 C L 32.7 C L 63 24 106/68 12/05/20 05:45 32.8 C L 59 L 12/05/20 05:30 33.2 C L 56 L BP Pulse Ox 12/05/20 16:00 132/77 97 12/05/20 15:59 95 12/05/20 15:00 142/117 H 92 12/05/20 14:00 77 L 12/05/20 13:00 92 12/05/20 12:00 92 12/05/20 11:22 79 L 12/05/20 11:14 95 12/05/20 11:00 98 12/05/20 10:00 89 L 12/05/20 09:00 83 L 12/05/20 08:14 86 L 12/05/20 08:00 86 L 12/05/20 07:00 79 L 12/05/20 06:45 79 L 12/05/20 06:30 73 L 12/05/20 06:15 76 L 12/05/20 06:00 12/05/20 05:45 12/05/20 05:30 Resident Activity Tracking Resident Involvement: Resident Care Provided Care Provided: Adult [facility] Medicine
[2020-12-05] MEDS ORDERED: DEXTROSE 50% 50 ML SYRINGE IV PRN (19:47)
[2020-12-05] MEDS: DEXTROSE 50% 50 ML SYRINGE IV PRN ×2 (19:50→23:32)
[2020-12-05 20:28] LABS: BUN Creatinine Ratio 23.2 (10-20); Calcium 8.5 mg/dl (8.5-10.1); Creatinine Clr Calc Pharmacy 37.4 ml/min; Est GFR (African American) 39.2 ml/min; Est GFR (Non-African American) 33.8 ml/min; Potassium 6.8 mmol/L (3.5-5.1)
[2020-12-05] MEDS ORDERED: SODIUM POLYSTYRENE SULFONATE 15G/60ML SUSP PO STA (20:34)
[2020-12-05] MEDS ORDERED: CALCIUM GLUCONATE 10% 1,000 MG in SODIUM CHLORIDE 0.9% 50 ML IV STA (21:09)
[2020-12-05] MEDS ORDERED: SODIUM BICARB 8.4% INJ 50 MEQ/50 ML SYR IV STA (21:09)
[2020-12-05] MEDS ORDERED: DEXTROSE 50% 50 ML SYRINGE IV STA (21:10)
[2020-12-05] MEDS ORDERED: INSULIN HUMAN REGULAR PER UNIT 10 UNITS in SYRINGE 9.9 ML IV STA (21:10)
[2020-12-06 04:06] LABS: iSTAT Arterial Blood Gas HCO3 26 meg/L (19-24); iSTAT Arterial Blood Gas pCO2 35 mmHg (35-46); iSTAT Arterial Blood Gas pH 7.48 (7.35-7.45); iSTAT Arterial Blood Gas pO2 199 mmHg (80-95); iSTAT Carbon Dioxide 27 mmol/L (24-31); iSTAT Site Art Line
[2020-12-06] MEDS: VASOPRESSIN 20 UNITS in 0.9 % SODIUM CHLORIDE 100 ML IV SCH ×2 (04:58→14:03)
[2020-12-06] MEDS: INSULIN ASPART 100 UNITS/ML 3 ML PEN SC SCH ×2 (04:58→14:02)
[2020-12-06 05:06] LABS: Hematocrit (blood only) 32.9 % (37-47); Hemoglobin 11.3 g/dL (12.0-16.0); Mean Corpuscular Hemoglobin 28.5 pg (25-34); Mean Corpuscular Hgb Conc 34.3 g/dL (32-36); Mean Corpuscular Volume 83.1 fL (80-100); Mean Platelet Volume 11.7 fL (7.4-10.4); Platelet Count 167 K/uL (130-400); RDW Coefficient of Variation 13.7 % (11.5-14.5); RDW Standard Deviation 41.6 fL (36.4-46.3); Red Blood Count 3.96 M/uL (4.2-5.4); White Blood Count 24.14 K/uL (4.8-10.8)
[2020-12-06 05:14] LABS: INR 1.4 (0.9-1.1); Partial Thromboplastin Ratio 1.3; Partial Thromboplastin Time 35.2 Seconds (21.0-31.0); Prothrombin Time 13.7 Seconds (9.0-12.0)
[2020-12-06 05:29] LABS: Basophils # (auto) 0.01 K/uL (0-0.2); Echinocytes 1+; Immature Granulocytes # (auto) 0.15 K/uL (0.00-0.02); Immature Granulocytes % (auto) 0.6 %; Lymphocytes # (auto) 1.68 K/uL (1.2-3.4); Monocytes # (auto) 0.87 K/uL (0.11-0.59); Monocytes % (auto) 3.6 %; Neutrophils # (auto) 21.43 K/uL (1.4-6.5); Neutrophils % (auto) 88.8 %
[2020-12-06 06:07] LABS: Albumin Globulin Ratio 0.9 (0.9-2); Albumin Level 2.3 gm/dl (3.4-5.0); Bilirubin,Total 0.6 mg/dl (0.2-1); Calcium 7.9 mg/dl (8.5-10.1); Creatinine Clr Calc Pharmacy 33.5 ml/min; Est GFR (African American) 34.3 ml/min; Est GFR (Non-African American) 29.6 ml/min; Globulin 2.6 gm/dl (2.5-4.0); Potassium 6.3 mmol/L (3.5-5.1); Total Protein 4.9 gm/dl (6.4-8.2)
[2020-12-06] MEDS ORDERED: DEXTROSE 50% 50 ML SYRINGE IV ONE (06:08)
[2020-12-06] MEDS ORDERED: CALCIUM GLUCONATE 10% 1,000 MG in SODIUM CHLORIDE 0.9% 50 ML IV ONE (06:20)
[2020-12-06] MEDS: PIPERACILLIN/TAZOBACTAM 3.375 GM in DEXTROSE 5% 100 ML IV SCH (06:24)
[2020-12-06] MEDS ORDERED: INSULIN HUMAN REGULAR PER UNIT 10 UNITS in SYRINGE 0 ML IV ONE (06:25)
[2020-12-06] MEDS ORDERED: SODIUM POLYSTYRENE SULFONATE 15G/60ML SUSP PO ONE (06:25)
[2020-12-06] MEDS: PROPOFOL BOLUS FROM BAG IV PRN (06:28)
[2020-12-06 10:07] LABS: BUN Creatinine Ratio 22.3 (10-20); Calcium 7.9 mg/dl (8.5-10.1); Creatinine Clr Calc Pharmacy 32.1 ml/min; Est GFR (African American) 32.6 ml/min; Est GFR (Non-African American) 28.1 ml/min; Potassium 4.5 mmol/L (3.5-5.1)
--- NOTE | 2020-12-06 10:24 | Neurology Consultation ---
Date of Consultation December 06, 2020 Assessment & Plan (1) Anoxic brain injury: (2) Cardiac arrest: Severe anoxic brain injury due to cardiac arrest in the context of methamphetamine abuse. Has been exhibiting anoxic myoclonus and remains unresponsive. This morning, patient has a significantly dilated right pupil. The right eye is inferolaterally deviated. These findings are worrisome for cerebral edema and herniation with compromise of the right oculomotor nerve. This finding was discussed with patient's nurse at bedside and with the cottrell operator. Urgent brain MRI has been ordered. If MRI cannot be completed would recommend an urgent CT of the head without contrast. Would consider starting Keppra to treat anoxic myoclonus. Prognosis very poor. Discussed poor prognosis with patient's family at bedside. I will review brain MRI when available. History of Present Illness Reason for Consultation: Cerebral anoxia Requesting Physician: Ambrosio Bales MD Attending Physician: Emily Levy DO History of Present Illness The patient is a 35-year old female who was found on the bathroom floor at around 3 AM by a friend. She has a history of methamphetamine and Xanax abuse and was apparently found unresponsive with a needle next to her on the floor. She was brought to the emergency department by private vehicle. She was pulseless and not breathing. She underwent several rounds of CPR with defibrillation. Patient eventually achieved return of spontaneous circulation and converted to normal sinus rhythm. She was unresponsive with no response to painful stimuli, cough, gag, or corneal reflexes. She was intubated and transferred to the ICU for 24-hour hypothermia protocol. A CT of the head completed at the time of admission was negative for hemorrhage or acute process. I reviewed the images as well as the radiologist's interpretation of this test. She has been exhibiting generalized myoclonic jerking movements of the head and limbs. An EEG completed yesterday revealed low amplitude generalized slowing and periodic discharges consistent with severe anoxic encephalopathy and anoxic myoclonus. This morning, the patient remains on the ventilator. She is unresponsive and exhibits minimal intermittent myoclonic twitching of the limbs. Patient's family was at bedside at the time of my assessment of her this morning. Family history noncontributory Allergies Allergy/AdvReac Type Severity Reaction Status Date / Time Penicillins Allergy Unknown Verified 12/04/20 14:21 Patient History Social History Smoking Status: Unknown if ever smoked Communication Ability: Unable to Communication Ability Comment: Unable to obtain Current Living Situation Comment: Unable to obtain Review of Systems Review of Systems: Unobtainable due to reduced consciousness Exam (Neuro) Physical Exam: Limited neurological examination due to persistent loss of consciousness. No response to voice, tactile, or noxious stimulation. Patient exhibits intermittent myoclonic twitching of the lower limbs. The right pupil is dilated and nonreactive. The right eye is inferolaterally deviated. The left pupil is nonreactive. Corneal reflexes, oculocephalic reflexes, and gag reflex are absent. Muscle tone is flaccid. There is no posturing at this time. Deep tendon reflexes diminished, plantar responses silent. Results & Data ([facility]) Vital Signs (Past 12 Hours) Vital Signs Temp Temp Temp Pulse Resp BP BP 12/06/20 07:08 83 32 H 12/06/20 06:00 37.7 C H 80 12/06/20 05:30 37.4 C 75 12/06/20 05:26 37.4 C 75 90/60 L 12/06/20 05:22 24 12/06/20 04:59 37.2 C 70 117/71 12/06/20 04:30 36.9 C 12/06/20 04:00 37.1 C 65 12/06/20 03:30 37.1 C 66 12/06/20 03:00 37.0 C 67 12/06/20 02:30 37.0 C 68 12/06/20 02:25 37.0 C 69 118/93 12/06/20 02:00 36.9 C 70 12/06/20 01:30 37.0 C 71 12/06/20 01:02 37.0 C 72 81/59 L 12/06/20 01:00 37.1 C 37.1 C 72 24 110/59 L 12/06/20 00:00 36.8 C 36.8 C 74 24 123/59 L 12/05/20 23:30 24 12/05/20 23:00 36.4 C L 36.4 C L 75 24 124/66 12/05/20 22:00 36.1 C L 36.1 C L 72 24 125/61 BP Pulse Ox 12/06/20 07:08 12/06/20 06:00 84 L 12/06/20 05:30 12/06/20 05:26 12/06/20 05:22 12/06/20 04:59 12/06/20 04:30 12/06/20 04:00 92 12/06/20 03:30 12/06/20 03:00 90 12/06/20 02:30 98 12/06/20 02:25 12/06/20 02:00 100 12/06/20 01:30 100 12/06/20 01:02 95 12/06/20 01:00 81/59 L 100 12/06/20 00:00 97 12/05/20 23:30 12/05/20 23:00 12/05/20 22:00 110/39 L 99 Laboratory Results WBC 24.14, hemoglobin 11.3, hematocrit 32.9, platelet count 167, sodium 138, potassium 4.5, BUN 49, creatinine 2.20, glucose 68, calcium 7.9, magnesium 2.0, AST 307, ALT 308, urine toxicology screen positive for amphetamines, ecstasy, and benzodiazepines. Diagnostic Findings CT of the head as described in the history of present illness. Electrocardiogram completed yesterday revealed a normal sinus rhythm, 76 bpm. An echocardiogram completed on December 04, 2020 revealed severely reduced left ventricular systolic function with regional wall motion abnormalities, ejection fraction 20 to 25%. Right ventricular systolic function severely reduced as well. Coding Level of Care Code 85336 Initial Inpt Care Lvl 3 Diagnoses Anoxic brain injury G93.1 Cardiac arrest I46.9
[2020-12-06] MEDS ORDERED: D5W AND NSS 1,000 ML IV SCH (10:30)
--- NOTE | 2020-12-06 10:52 | Critical Care Progress Note ---
Date of Service December 06, 2020 Assessment & Plan (1) Cardiogenic shock: Reason Critically Ill: 35-year-old female presents to the ICU following cardiac arrest from a drug overdose and undergoing therapeutic hypothermia. Currently in cardiogenic shock requiring multiple vasopressors. Neuro - Patient with likely significant anoxic brain injury. Concern for possible ongoing herniation. MRI brain ordered. Neurology consulted and following. EEG yesterday with severe slowing consistent with anoxic brain injury. Palliative care following. Propofol being utilized to help with suppression of myoclonic jerks. UDS was positive for amphetamines, ecstasy and benzodiazepines. Thus far, it does not appear the patient has progressed to brain as she is currently overbreathing the ventilator. Cardiac - Cardiogenic shock/cardiac arrestdifficult to rule out sepsis. Continue with Levophed and vasopressin to maintain mean arterial pressures above 65 mmHg. Targeted temperature management completed. Respiratory - Minimal vent settings at this time. Pulmonary edema has largely resolved. GI - N.p.o. RENAL/LYTES - AKIlikely ATN following cardiac arrest. He continues to have significant hyperkalemia and worsening renal failure. Not an ideal candidate for dialysis given her severe anoxic brain injury. Continue to treat medically with insulin, diuretic therapy and Kayexalate. - Foleystrict I's and O's ENDO - No history diabetes or thyroid disease ICU hyperglycemic protocol HEME - Hemoglobin stable at this time, monitor routine CBCs ID - Continue Zosyn for possible sepsis. Possible UTI. LINES/IV ACCESS - right femoral intravascular cooling catheter DVT PROPHYLAXIS - SCDs Prognosis is extremely poor. I have personally spent 38 minutes of critical care time in the direct management of this patient. This is a life/limb threatening event. This includes time spent evaluating patient, direct bedside care, chart review, placing orders, interpretation of diagnostic studies, discussion with consultants, patient, and family members, as well as other required patient management activities. This time is exclusive of all separately billable procedures, and teaching time and separate from and in addition to any other critical care service time. Thank you for allowing us to participate in the care of this patient. Please refer to my attending physician's documentation for any further recommendations. (2) Anoxic brain injury: (3) Overdose: (4) Cardiac arrest: (5) Methamphetamine abuse: (6) Ventricular fibrillation: Admission and Anticipated Discharge Date Admission Date: December 04, 2020 Subjective Patient seen and examined this morning. She continues to have very significant myoclonic jerking. Nonresponsive to commands. Currently on low-dose of propofol and fentanyl to promote ventilator synchrony and suppress jerking activity. Family is at bedside and was updated about her progress. They understand that her prognosis is extremely poor. [facility] is currently following the patient. Review of Systems Review of Systems: Unobtainable due to cognitive status Physical Exam Constitutional: + ill appearing and + altered mental status Respiratory: normal respiratory effort, lungs clear to auscultation Cardiovascular: RRR, no murmur, no edema Gastrointestinal (Abdomen): normal bowel sounds, soft, nontender, no hepatosplenomegaly Musculoskeletal: no cyanosis or clubbing, extremities motor strength 5/5 Skin: no rashes, warm and dry Neurologic: Obtunded. Frequent myoclonic jerking. Psychiatric: Unable to assess Results & Data Results & Data ([facility]) Vital Signs (Past 12 Hours) Vital Signs Temp Temp Temp Pulse Resp BP BP 12/06/20 09:00 98.6 F 76 12/06/20 08:00 82 12/06/20 07:08 83 32 H 12/06/20 07:00 81 12/06/20 06:00 99.9 F H 80 12/06/20 05:30 99.3 F 75 12/06/20 05:26 99.3 F 75 90/60 L 12/06/20 05:22 24 12/06/20 04:59 99.0 F 70 117/71 12/06/20 04:30 98.4 F 12/06/20 04:00 98.8 F 65 12/06/20 03:30 98.8 F 66 12/06/20 03:00 98.6 F 67 12/06/20 02:30 98.6 F 68 12/06/20 02:25 98.6 F 69 118/93 12/06/20 02:00 98.4 F 70 12/06/20 01:30 98.6 F 71 12/06/20 01:02 98.6 F 72 81/59 L 12/06/20 01:00 98.8 F 98.8 F 72 24 110/59 L 12/06/20 00:00 98.2 F 98.2 F 74 24 123/59 L 12/05/20 23:30 24 12/05/20 23:00 97.5 F L 97.5 F L 75 24 124/66 BP Pulse Ox 12/06/20 09:00 89 L 12/06/20 08:00 97 12/06/20 07:08 12/06/20 07:00 98 12/06/20 06:00 84 L 12/06/20 05:30 12/06/20 05:26 12/06/20 05:22 12/06/20 04:59 12/06/20 04:30 12/06/20 04:00 92 12/06/20 03:30 12/06/20 03:00 90 12/06/20 02:30 98 12/06/20 02:25 12/06/20 02:00 100 12/06/20 01:30 100 12/06/20 01:02 95 12/06/20 01:00 81/59 L 100 12/06/20 00:00 97 12/05/20 23:30 12/05/20 23:00 vital signs, labs and imaging reviewed. Coding Level of Care Code Critical Care 1st 30-74 mins Diagnoses Cardiogenic shock R57.0 Anoxic brain injury G93.1 Overdose T50.901A Cardiac arrest I46.9 Methamphetamine abuse F15.10 Ventricular fibrillation I49.01 Time Spent (min) 38
[2020-12-06] MEDS: AMIODARONE / D5W 360 MG/200 ML BAG IV SCH (12:15)
[2020-12-06] MEDS: propofoL 1,000 MG/100 ML VIAL IV SCH ×2 (12:16→14:06)
--- NOTE | 2020-12-06 13:54 | Magnetic Resonance Report ---
MRI OF THE BRAIN WITHOUT IV CONTRAST CLINICAL HISTORY: Anoxic brain injury. COMPARISON STUDY: CT of the brain dated 12/04/2020 TECHNIQUE: MRI of the brain was performed utilizing various T1 and T2-weighted sequences in the axial , sagittal, and coronal planes. IV contrast was not administered for this examination. FINDINGS: Brain parenchyma: There is extensive signal abnormality seen throughout the brain parenchyma, with nevarez btle restricted diffusion throughout the cortical sulci as well as the brainstem. This is greatest in volving the frontal and parietal lobes, and the appearance is consistent with anoxic brain injury/dif fuse cerebral edema. The brainstem is markedly edematous, and there is evidence of tonsillar herniati on. The cerebellar tonsils project 9 mm below the foramen magnum. There is a punctate focus of suscep tibility artifact in the left frontal lobe seen on the gradient sequences (axial image #16) and a sma ll focus of hemorrhage is not excluded. There is no midline shift. No extra-axial fluid collection is seen. Ventricles, sulci, and cisterns: There is diffuse effacement of the cortical sulci as well as narrowi ng of the ventricles. Pituitary and sella: Unremarkable. Intracranial vasculature: Normal flow voids are maintained at the skull base. Orbits: The bony orbits are grossly intact. Orbital contents are normal in appearance. Layering fluid /secretions fill the pharynx. Sinuses and mastoids: There is a left mastoid effusion. The right mastoid air cells and the paranasal sinuses are clear. Calvarium: Unremarkable. Cervical cord: Partially visualized cervical spinal cord is normal in morphology and signal intensity . IMPRESSION: 1. Markedly abnormal examination as above with evidence of anoxic brain injury/diffuse cerebral edema . 2. There is edema of the brain stem and tonsillar herniation. 3. Question a punctate focus of hemorrhage within the left frontal lobe. 4. Additional findings as above. ACT 112: Negative or not required by law. Electronically signed by: Gideon Tidwell M.D. 12/06/2020 1:52 PM
[2020-12-06] MEDS: fentaNYL DRIP 1,250 MCG/250 ML BAG IV SCH (14:05)
[2020-12-06] MEDS ORDERED: levETIRAcetam 1,000 MG in 0.9 % SODIUM CHLORIDE 100 ML IV ONE (15:00)
[2020-12-06] MEDS: FAMOTIDINE 20 MG in SYRINGE 3 ML IV SCH (15:49)
[2020-12-06] MEDS: HEPARIN SOD 5,000 UNIT/0.5 ML VIAL SQ SCH (16:48)
--- NOTE | 2020-12-06 16:52 | Communication Note ---
Date of Service: December 06, 2020 Lengthy discussion was had with the family at bedside regarding the patient's condition. MRI brain imaging was consistent with anoxic brain injury and zahraa iation of her brainstem. These findings were relayed over to the family including the patient's mother. They have elected to proceed with a compassionate extubation. Orders were placed for extubation. Coding Level of Care Code None
--- NOTE | 2020-12-06 16:53 | Electrocardiogram Report ---
Test Reason : Blood Pressure : / mmHG Vent. Rate : 068 BPM Atrial Rate : 068 BPM P-R Int : 178 ms QRS Dur : 118 ms QT Int : 498 ms P-R-T Axes : 048 090 038 degrees QTc Int : 529 ms Normal sinus rhythm Rightward axis Non-specific intra-ventricular conduction delay Prolonged QT Atypical right bundle branch pattern- consider Brugada Abnormal ECG When compared with ECG of 05-DEC-2020 13:32, QRS duration has increased ST no longer elevated in Inferior leads Confirmed by Efrain Cabrales ([id number]) on 12/06/2020 4:53:02 PM Referred By: REFERRED SELF Confirmed By:Earl Cabrales
--- NOTE | 2020-12-06 17:07 | Electrocardiogram Report ---
Test Reason : Blood Pressure : / mmHG Vent. Rate : 076 BPM Atrial Rate : 076 BPM P-R Int : 162 ms QRS Dur : 092 ms QT Int : 478 ms P-R-T Axes : 061 083 062 degrees QTc Int : 537 ms Normal sinus rhythm Prolonged QT Abnormal ECG When compared with ECG of 05-DEC-2020 19:21, (unconfirmed) No significant change was found Confirmed by Efrain Cabrales ([id number]) on 12/06/2020 5:06:31 PM Referred By: REFERRED SELF Confirmed By:Earl Cabrales
--- NOTE | 2020-12-06 17:21 | Death Pronouncement Note ---
Date of Service December 06, 2020 Pronouncement Note Admission Date Admission Date: December 04, 2020 Date and Time of Time of : 16:45 Contributing Factors (1) Cardiogenic shock: (2) Anoxic brain injury: (3) Overdose: (4) Methamphetamine abuse: (5) Ventricular fibrillation: Hospital Course Hospital Course: See below Summary Additional details: Patient presented to the ED in cardiac arrest secondary to suspected drug overdose after being found down in bathroom of friend's house, next to IV drug paraphernalia. Patient was unresponsive on arrival, and a code blue was activated. Patient was intubated, and CPR was performed for approximately one hour before ROSC was obtained. Patient was transferred to the ICU and required multiple vasopressors. Family was notified. Patient showed signs of severe anoxic brain injury, and therapeutic hypothermia protocol was initiated. After 24 hours of goal temperature was achieved, patient was rewarmed and evaluated by neurology. Patient showed signs of brainstem herniation on p hysical exam and imaging, and prognosis was felt to be extremely poor. Patient on hospital day three with family at bedside. Additional Data Confirmation of : no pulse, no respirations, no heart sounds and pupils fixed and dilated Family: at bedside Attending/PCP notified?: Yes Attending physician: Emily Levy, DO Autopsy requested?: No soft work wrapper layer and examiner notified?: No Supervising Physician Co-Signing Physician Notes Patient seen and examined with PGY 1 Dr. Dupree. Agree with history, exam findings and hospital course as documented. In brief, Nyasia is a 35-year-old female who was admitted in cardiac arrest following a methamphetamine overdose. She has been managed in the intensive care unit after ROSC was achieved after 1 hour of CPR in the emergency department. Unfortunately, she has sustained severe anoxic brain injury. She has been followed by the critical care team as well as neurology. She has had EEG and MRI both for prognostic purposes. The family had decided to do a compassionate extubation. Nyasia at 445pm. Family (mother, mother's significant other, and aunt) at the bedside. They do not want an autopsy. certificate completed. Coding Level of Care Code None Diagnoses Cardiogenic shock R57.0 Anoxic brain injury G93.1 Overdose T50.901A Methamphetamine abuse F15.10 Ventricular fibrillation I49.01 Resident Activity Tracking Resident Involvement: Resident Care Provided Care Provided: Adult [facility] Medicine
[2020-12-06] MEDS ORDERED: DESTROY THIS MEDICATION ONE (19:03)
[2020-12-06] MEDS ORDERED: NOREPINEPHRINE/D5W 8 MG/508 ML IV ONE (19:18)
[2020-12-06] MEDS ORDERED: FAMOTIDINE 20 MG in SYRINGE 3 ML IV SCH (21:00)
[2020-12-07 13:41] LABS: 7-Aminoclonaz, Confirm 193 ng/mL (<25); Amphetamine Urine, Confirm >15000 ng/mL (<250); Hydro-Alp Ur, GC/MS NEGATIVE ng/mL (<25); Hydroxyethylflurazepam, Conf NEGATIVE ng/mL (<50); Hydroxymidazolam Ur, GC/MS NEGATIVE ng/mL (<50); Hydroxytriazolam NEGATIVE ng/mL (<50); Lorazepam, Ur GC/MS NEGATIVE ng/mL (<50); MDA negative; MDEA negative; MDMA (Ecstasy) Urine, Confirm negative; Methamphetamine, Ur Confirm >15000 ng/mL (<250); Nordiazepam, Confirm NEGATIVE ng/mL (<50); Oxazepam Ur, GC/MS NEGATIVE ng/mL (<50); Temazepam, Confirm NEGATIVE ng/mL (<50)
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
== END 2020-12-06 18:15 | disposition expired | DRG 917 ==
LOC: ED 03:30 → EDBD 03:30 → SUATTDRO 04:24 → 1E 04:24
DX: G93.1 Anoxic brain damage, not elsewhere classified; N39.0 Urinary tract infection, site not specified; R57.0 Cardiogenic shock; J96.01 Acute respiratory failure with hypoxia; I47.2 Ventricular tachycardia; T43.621A Poisoning by amphetamines, accidental (unintentional), initial encounter; F15.129 Other stimulant abuse with intoxication, unspecified; E83.52 Hypercalcemia; R40.20 Unspecified coma; J81.1 Chronic pulmonary edema; I49.01 Ventricular fibrillation; I48.91 Unspecified atrial fibrillation; Z88.0 Allergy status to penicillin; E87.5 Hyperkalemia; Z51.5 Encounter for palliative care; F13.10 Sedative, hypnotic or anxiolytic abuse, uncomplicated; R04.89 Hemorrhage from other sites in respiratory passages; Y84.8 Other medical procedures as the cause of abnormal reaction of the patient, or of later complication, without mention of misadventure at the time of the procedure; G93.5 Compression of brain; Y92.89 Other specified places as the place of occurrence of the external cause; N17.0 Acute kidney failure with tubular necrosis; Y92.238 Other place in hospital as the place of occurrence of the external cause; I46.8 Cardiac arrest due to other underlying condition